=== PATIENT | male | born 1975 | race Two or more races ===

== ENCOUNTER 2022-01-29 14:13 | Outpatient (REF) | payer OTHER, SELFPAY ==
[2022-01-29 15:40] LABS: Estimated Average Glucose 292 mg/dL; Hemoglobin A1c % 11.8 %
[2022-01-29 16:07] LABS: Cholesterol 463 mg/dL
[2022-01-29 16:17] LABS: Creatinine Urine 126.16 mg/dL
[2022-01-29 16:18] LABS: Alanine Aminotransferase 27 U/L (0-40); Albumin Level 4.7 g/dL (3.5-5.0); Alkaline Phosphatase 115 U/L (39-117); Anion Gap 20 (12-20); Aspartate Amino Transferase 23 U/L (5-37); Bilirubin Total 0.6 mg/dL (0.0-1.0); Blood Urea Nitrogen 14 mg/dL (9-16); Calcium 10.1 mg/dL (8.4-10.2); Carbon Dioxide 19 mmol/L (22-29); Chloride 103 mmol/L (96-108); Estimated Glomerular Filt Rate > 60; Glucose Fasting 246 mg/dL (60-99); Potassium 4.5 mmol/L (3.3-5.1); Sodium 137 mmol/L (135-145); Total Protein 8.4 g/dL (6.5-8.0)
[2022-01-29 16:20] LABS: HDL Cholesterol 14 mg/dL; Triglycerides 3909 mg/dL
[2022-01-29 16:30] LABS: Microalbum/Creatinine Ratio Ur 393.1 ug/mg cr
[2022-01-29 16:47] LABS: Basophils Percent Auto 0.1 % (0-2); Eosinophils Absolute Auto 0.2 X10*3/uL (0.0-0.4); Eosinophils Percent Auto 1.9 % (0-4); Hematocrit 43.9 % (42.0-52.0); Imm Gran Abs Auto 0.06 X10*3/uL (0.00-0.03); Imm Gran Pct Auto 0.7 % (0.0-0.4); Lymphocytes Absolute Auto 2.6 X10*3/uL (1.2-4.9); Lymphocytes Percent Auto 31.5 % (20-40); MANUAL DIFF FLAG SCAN; Mean Corpuscular Volume 86.6 fL (80.0-98.0); Mean Platelet Volume 10.7 fL (9.4-12.4); Monocytes Absolute Auto 0.6 X10*3/uL (0.1-1.2); Neutrophils Absolute Auto 4.9 x10*3/uL (2.0-8.3); Neutrophils Percent Auto 58.8 % (45-73); Platelet Count 452 X10*3/uL (160-400); Red Blood Count 5.07 X10*6/uL (4.60-5.80); Red Cell Distribution Width 13.5 % (11.0-16.0); SCAN SMEAR FLAG 1; White Blood Count 8.3 X10*3/uL (4.8-10.8)
[2022-01-29 18:24] LABS: Hemoglobin 14.7 g/dl (14.0-18.0); Mean Corpuscular HGB Conc 33.4 g/dl (31.0-36.0); Mean Corpuscular Hemoglobin 28.9 pg (27.0-33.0)
[2022-01-29 19:13] LABS: SLIDE REVIEW VERIFIED
== END 2022-01-29 14:14 | disposition home or self-care (01) ==
LOC: HO.LAB 14:13
PROVIDERS: PCP Internal Medicine; Visit Provider Internal Medicine
DX: Z00.00 Encounter for general adult medical examination without abnormal findings (principal); Z13.0 Encounter for screening for diseases of the blood and blood-forming organs and certain disorders involving the immune mechanism; E11.69 Type 2 diabetes mellitus with other specified complication; E66.01 Morbid (severe) obesity due to excess calories
CPT/HCPCS: 36415; 80053; 80061; 82043; 83036; 85025

== ENCOUNTER 2022-03-08 10:57 | Outpatient (REF) | payer OTHER, SELFPAY ==
[2022-03-08 12:08] LABS: Glucose Fasting 127 mg/dL (60-99)
[2022-03-08 12:12] LABS: Estimated Average Glucose 229 mg/dL; Hemoglobin A1c % 9.6 %
[2022-03-08 12:37] LABS: Creatinine Urine 138.53 mg/dL; Microalbum/Creatinine Ratio Ur 88.7 ug/mg cr
== END 2022-03-08 10:58 | disposition home or self-care (01) ==
LOC: HO.LAB 10:57
PROVIDERS: PCP Internal Medicine; Visit Provider Internal Medicine
DX: E11.69 Type 2 diabetes mellitus with other specified complication (principal); E66.01 Morbid (severe) obesity due to excess calories; E11.65 Type 2 diabetes mellitus with hyperglycemia
CPT/HCPCS: 36415; 82043; 82947; 83036

== ENCOUNTER → 2022-11-08 09:43 | Outpatient (BNVA) | payer OTHER, SELFPAY | PROVIDERS: PCP Internal Medicine; Referring Provider Internal Medicine; Visit Provider Surgery | DX: K62.9 Disease of anus and rectum, unspecified (principal) | CPT/HCPCS: 99202 ==

== ENCOUNTER 2022-11-22 10:33 | Outpatient (REF) | payer OTHER, SELFPAY ==
[2022-11-22 10:45] VITALS: BP 163/90; PULSE 82; RESP 16; TEMP 36.7; O2SAT 98
[2022-11-22 10:47] VITALS: BMI 39.0
--- NOTE | 2022-11-22 11:51 | W.PM.OPN ---
Operative Note Operative Note Date of Service: 11/22/22 Narrative: Preop diagnosis: Perianal skin lesion Postop diagnosis: Perianal skin lesion Procedure: Excision of perianal lesion under local anesthesia Surgeon: Shmuel Sotomayor MD The patient is a 47-year-old male with note of a polypoid fleshy perianal lesion just at the anal verge. He wanted to proceed with excision. He understood the technique of excision under local anesthesia. He was aware of the risks, benefits, and alternatives. He was brought to the minor procedure room. he was placed in prone position. The buttocks were retracted with wide tape laterally. The perianal area is prepped draped usual sterile fashion. Lesion was seen as described above. This was about 1 cm in diameter. This had a narrow base. I infiltrated the area with lidocaine 1%. I excised the lesion using a blade 15. This was sent as a specimen. I closed the incision and thickness chromic 3-0 sutures. Good hemostasis was noted. He tolerated procedure well. There were no immediate complications. Estimated blood loss about 5 cc He was given wound care instructions and will be seen in the office for postop check.
[2022-11-22 12:19] VITALS: BP 143/89; PULSE 88; RESP 16; O2SAT 97
== END 2022-11-22 10:34 | disposition home or self-care (01) ==
LOC: HO.MS 10:33
PROVIDERS: PCP Internal Medicine; Visit Provider Surgery
PROC: (CPT 46220; principal; 2022-11-22 11:30)
DX: A63.0 Anogenital (venereal) warts (principal)
CPT/HCPCS: 46220; 88304; 88305

== ENCOUNTER → 2022-12-10 11:07 | Outpatient (BNVA) | payer OTHER, SELFPAY | PROVIDERS: PCP Internal Medicine; Visit Provider Surgery | DX: Z13.89 Encounter for screening for other disorder (principal) ==

== ENCOUNTER 2022-12-17 09:23 | Outpatient (REF) | payer OTHER, SELFPAY ==
[2022-12-17 09:35] LABS: MANUAL DIFF FLAG NO
[2022-12-17 09:43] LABS: Basophils Percent Auto 0.3 % (0-2); Eosinophils Absolute Auto 0.2 X10*3/uL (0.0-0.4); Eosinophils Percent Auto 1.6 % (0-4); Hematocrit 45.1 % (42.0-52.0); Hemoglobin 14.9 g/dl (14.0-18.0); Imm Gran Abs Auto 0.13 X10*3/uL (0.00-0.03); Imm Gran Pct Auto 1.4 % (0.0-0.4); Lymphocytes Absolute Auto 2.6 X10*3/uL (1.2-4.9); Lymphocytes Percent Auto 27.2 % (20-40); Mean Corpuscular Hemoglobin 28.9 pg (27.0-33.0); Mean Corpuscular Volume 87.4 fL (80.0-98.0); Mean Platelet Volume 9.1 fL (9.4-12.4); Monocytes Absolute Auto 0.7 X10*3/uL (0.1-1.2); Monocytes Percent Auto 7.7 % (2-11); Neutrophils Percent Auto 61.8 % (45-73); Platelet Count 383 X10*3/uL (160-400); Red Blood Count 5.16 X10*6/uL (4.60-5.80); Red Cell Distribution Width 12.4 % (11.0-16.0); White Blood Count 9.6 X10*3/uL (4.8-10.8)
[2022-12-17 10:38] LABS: Alanine Aminotransferase 39 U/L (0-40); Albumin Level 4.6 g/dL (3.5-5.0); Alkaline Phosphatase 104 U/L (39-117); Anion Gap 15 (12-20); Aspartate Amino Transferase 25 U/L (5-37); Bilirubin Total 0.6 mg/dL (0.0-1.0); Blood Urea Nitrogen 17 mg/dL (9-16); Calcium 9.6 mg/dL (8.4-10.2); Carbon Dioxide 25 mmol/L (22-29); Chloride 105 mmol/L (96-108); Cholesterol 183 mg/dL; Estimated Glomerular Filt Rate > 60; Glucose Fasting 230 mg/dL (60-99); HDL Cholesterol 25 mg/dL; Potassium 4.9 mmol/L (3.3-5.1); Sodium 140 mmol/L (135-145); Triglycerides 507 mg/dL
[2022-12-17 10:56] LABS: Thyroid Stimulating Hormone 1.52 uIU/mL (0.32-4.0)
[2022-12-17 11:18] LABS: Microalbum/Creatinine Ratio Ur 127.9 ug/mg cr
== END 2022-12-17 09:24 | disposition home or self-care (01) ==
LOC: HO.LAB 09:23
PROVIDERS: PCP Internal Medicine; Visit Provider Internal Medicine
DX: E03.9 Hypothyroidism, unspecified (principal); E11.69 Type 2 diabetes mellitus with other specified complication; E66.01 Morbid (severe) obesity due to excess calories; E78.5 Hyperlipidemia, unspecified; I10 Essential (primary) hypertension; Z13.0 Encounter for screening for diseases of the blood and blood-forming organs and certain disorders involving the immune mechanism
CPT/HCPCS: 36415; 80053; 80061; 82043; 84443; 85025

== ENCOUNTER 2023-06-19 10:23 | Outpatient (AMB) | payer OTHER, SELFPAY ==
[2023-06-19 10:27] VITALS: BP 132/84; PULSE 76; O2SAT 98; BMI 36.8
--- NOTE | 2023-06-19 10:27 | MHC.PC.OV ---
Vital Signs 06/19/23 10:27 Height 5 ft 6 in Weight 228 lb BMI 36.8 BP 132/84 Blood Pressure Location Lt brachial Position Sitting Pulse 76 Pulse Source Pulse Oximeter Pulse Oximetry (%) 98 Oxygen Delivery Method Room Air Intake Visit Reasons: 3mth f/u Tomography Technologist: Not Required per policy Accompanied by: Self / Same As Patient Allergies No Known Allergies Allergy (Verified 06/19/23 10:27) Medication List - Last Reconciled 06/19/23 by Bob Bernard MD clonazepam 2 mg PO BEDTIME PRN hydroxyzine pamoate 25 mg PO BEDTIME PRN lisinopril 10 mg PO DAILY metformin 500 mg PO BID zolpidem 10 mg PO BEDTIME Tobacco use date assessed: 03/19/23 Dental Screening Dental Screen Date: 06/19/23 Did you have a dental visit in the last 12 months?: No Did you have a dental problem in the last 6 months where you did not have access to dental care?: No Was dental information given to patient?: Patient has dentist HPI 3mth f/u HPI Details HTN on Rx; doing well PFSH Medical History Bipolar disorder Obesity Perianal lesion Surgical History H/O local excision of skin lesion (11/22/22) No pertinent past surgical history Social History Housing: Apartment Patient Tobacco Use Status: Former Tobacco user Tobacco use type: Cigarette e-Cigarette/Vaping Use: Never Used Second Hand Smoke Exposure: No service: No Current occupational status: disabled Cognitive needs: Yes Hearing needs: Yes (deaf) Vision needs: Yes Questionnaire PHQ-9 Over the last 2 weeks, how often have you been bothered by any of the following problems? 1. Little interest or pleasure in doing things: not at all 2. Feeling down, depressed, or hopeless: more than half the days 3. Trouble falling or staying asleep, or sleeping too much: more than half the days 4. Feeling tired or having little energy: not at all 5. Poor appetite or overeating: not at all 6. Feeling bad about yourself - or that you are a failure or have let yourself or your family down: not at all 7. Trouble concentrating on things, such as reading the newspaper or watching television: not at all 8. Moving or speaking so slowly that other people could have noticed. Or the opposite - being so fidgety or restless that you have been moving around a lot more than usual: not at all 9. Thoughts that you would be better off or of hurting yourself in some way: not at all Total score: 4 Depression Screening Interpretation: Negative 53925 - PHQ-9 Billing: Yes Source: Developed by Drs. Thomas Phillips, Emy Hemphill, Hank Marroquin and colleagues, with an educational beba from [employer]. Thrive Questionnaire Date Thrive assessed: 03/19/23 Currently or been in a relationship where the following occur: no concerns reported AUDIT C Alcohol Use Questionnaire (AUDIT-C) 1. How often do you have a drink containing alcohol?: Never Total Score: 0 Score Reviewed/Action Taken: Yes MARU-7 AMB Questionnaire MARU-7 Date MARU - 7 assessed: 03/19/23 Source: Developed by Drs. Thomas Phillips, Emy Hemphill, Hank Marroquin and colleagues, with an educational beba from [employer]. Review of Systems Const Denies chills, Denies headache(s) and Denies weight loss ENT Denies headache(s) Card Denies chest pain, Denies syncope, Denies irregular heart rhythm and Denies dyspnea Resp Denies chest congestion, Denies cough and Denies dyspnea GI Denies abdominal pain, Denies change in stool character, Denies nausea and Denies vomiting Musc Denies deformity and Denies joint swelling Neuro Denies syncope and Denies headache(s) Physical exam (Primary Care) Vital Signs: Last Vital Signs Pulse 76 06/19/23 10:27 BP 132/84 06/19/23 10:27 Pulse Ox 98 06/19/23 10:27 Oxygen Delivery Method Room Air 06/19/23 10:27 BMI result Body Mass Index 36.8 Tobacco/Smoking Status: Tobacco use Status Tobacco use date assessed 03/19/23 06/19/23 10:28 Patient Tobacco Use Status Former Tobacco user 06/19/23 10:28 Tobacco use type Cigarette 06/19/23 10:28 e-Cigarette/Vaping Use Never Used 06/19/23 10:28 PHQ-9: PHQ-9 Score PHQ-9: Total score 4 06/19/23 10:43 Depression Screening Interpretation: Negative Thrive Assessment: Date of Thrive Assessment Date Thrive assessed 03/19/23 06/19/23 10:28 Currently or been in a relationship where the following occur: no concerns reported Const General: cooperative, healthy appearing and no acute distress Resp Effort & Inspection: normal respiratory effort Auscultation: clear to auscultation bilaterally Percussion: percussion normal Cardio Jugular venous distension: no JVD Rate: regular rate Rhythm: regular rhythm GI Inspection: Yes normal to inspection Results AMB Hemoglobin A1c AMB Hemoglobin A1c 7.5 % Last Edit by MARIELY Ying on 06/19/23 10:43 Results Reviewed Results Reviewed: Laboratory Last Values Hgb A1c (Clinic) 7.5 % (4.0-6.0) H 06/19/23 10:28 Assessment and Plan Assessment & Plan (1) Hypertension: Code(s): I10 - Essential (primary) hypertension Plan: stable; same rx Orders: Orders AMB Hemoglobin A1c Today E11.69 - Type 2 diabetes mellitus with other specified complication, E66.01 - Morbid (severe) obesity due to excess calories Medications: Refilled lisinopril 10 mg PO DAILY 60 tabs 6RF Coding Level of Care Code Est Pt Level 3 (99214) Diagnoses Hypertension I10
== END 2023-06-19 10:39 | disposition home or self-care (01) ==
PROVIDERS: PCP Internal Medicine; Visit Provider Internal Medicine
DX: E11.69 Type 2 diabetes mellitus with other specified complication (principal); E66.01 Morbid (severe) obesity due to excess calories; I10 Essential (primary) hypertension; Z68.36 Body mass index [BMI] 36.0-36.9, adult
CPT/HCPCS: 83036; 99213

== ENCOUNTER 2023-07-15 09:58 | Outpatient (AMB) | payer OTHER, SELFPAY ==
[2023-07-15 09:59] VITALS: BP 126/70; PULSE 81; O2SAT 100; BMI 36.6
--- NOTE | 2023-07-15 09:59 | MHC.PC.OV ---
Vital Signs 07/15/23 09:59 Height 5 ft 6 in Weight 227 lb BMI 36.6 BP 126/70 Blood Pressure Location Lt brachial Position Sitting Pulse 81 Pulse Source Pulse Oximeter Pulse Oximetry (%) 100 Oxygen Delivery Method Room Air Intake Visit Reasons: Annual Exam Swaging Machine Operator Required: No Medical Assistant Dermatology: Not Required per policy Accompanied by: Self / Same As Patient Allergies No Known Allergies Allergy (Verified 07/15/23 10:00) Medication List - Last Reconciled 07/15/23 by Bob Bernard MD clonazepam 2 mg PO BEDTIME PRN hydroxyzine pamoate 25 mg PO BEDTIME PRN lisinopril 10 mg PO DAILY metformin 500 mg PO BID zolpidem 10 mg PO BEDTIME Tobacco use date assessed: 03/19/23 Dental Screening Dental Screen Date: 07/15/23 Did you have a dental visit in the last 12 months?: No Did you have a dental problem in the last 6 months where you did not have access to dental care?: No Was dental information given to patient?: Patient has dentist HPI Annual Exam HPI Details HTN and DM; labs [facility] Medical History Perianal lesion Bipolar disorder Obesity Surgical History H/O local excision of skin lesion (11/22/22) No pertinent past surgical history Social History Housing: Apartment Patient Tobacco Use Status: Former Tobacco user Tobacco use type: Cigarette e-Cigarette/Vaping Use: Never Used Second Hand Smoke Exposure: No service: No Current occupational status: disabled Cognitive needs: Yes Hearing needs: Yes (deaf) Vision needs: Yes Questionnaire PHQ-9 Over the last 2 weeks, how often have you been bothered by any of the following problems? 1. Little interest or pleasure in doing things: not at all 2. Feeling down, depressed, or hopeless: more than half the days 3. Trouble falling or staying asleep, or sleeping too much: more than half the days 4. Feeling tired or having little energy: not at all 5. Poor appetite or overeating: not at all 6. Feeling bad about yourself - or that you are a failure or have let yourself or your family down: not at all 7. Trouble concentrating on things, such as reading the newspaper or watching television: not at all 8. Moving or speaking so slowly that other people could have noticed. Or the opposite - being so fidgety or restless that you have been moving around a lot more than usual: not at all 9. Thoughts that you would be better off or of hurting yourself in some way: not at all Total score: 4 Depression Screening Interpretation: Negative 96257 - PHQ-9 Billing: Yes Source: Developed by Drs. Thomas Phillips, Emy Hemphill, Hank Marroquin and colleagues, with an educational beba from [employer]. Thrive Questionnaire Date Thrive assessed: 03/19/23 AUDIT C Alcohol Use Questionnaire (AUDIT-C) 1. How often do you have a drink containing alcohol?: Never Total Score: 0 Score Reviewed/Action Taken: Yes MARU-7 AMB Questionnaire MARU-7 Date MARU - 7 assessed: 03/19/23 Source: Developed by Drs. Thomas Phillips, Emy Hemphill, Hank Marroquin and colleagues, with an educational beba from [employer]. Review of Systems Const Denies chills, Denies fatigue, Denies headache(s) and Denies weight loss Eyes Denies change in vision, Denies diplopia and Denies eye pain ENT Denies vertigo, Denies dizziness, Denies headache(s) and Denies nasal discharge Card Denies chest pain, Denies rapid heart rate and Denies dyspnea on exertion Resp Denies chest congestion, Denies cough, Denies pain with cough and Denies dyspnea on exertion GI Denies abdominal pain, Denies hematochezia and Denies change in bowel habits Musc Denies myalgias, Denies arthralgias and Denies joint swelling Skin/Breast Denies lesions and Denies unusual bruising Neuro Denies vertigo, Denies dizziness, Denies headache(s) and Denies focal weakness Endo Denies fatigue Physical exam (Primary Care) Vital Signs: Last Vital Signs Pulse 81 07/15/23 09:59 BP 126/70 07/15/23 09:59 Pulse Ox 100 07/15/23 09:59 Oxygen Delivery Method Room Air 07/15/23 09:59 BMI result Body Mass Index 36.6 Tobacco/Smoking Status: Tobacco use Status Tobacco use date assessed 03/19/23 07/15/23 10:01 Patient Tobacco Use Status Former Tobacco user 07/15/23 10:01 Tobacco use type Cigarette 07/15/23 10:01 e-Cigarette/Vaping Use Never Used 07/15/23 10:01 PHQ-9: PHQ-9 Score PHQ-9: Total score 4 07/15/23 10:13 Depression Screening Interpretation: Negative Thrive Assessment: Date of Thrive Assessment Date Thrive assessed 03/19/23 07/15/23 10:01 Const General: cooperative, healthy appearing and no acute distress Orientation/consciousness: oriented to person, oriented to place and oriented to time HENMT Head: Yes normal to inspection, Yes normocephalic and Yes atraumatic Mouth: Normal oral and palatal mucosa present and tongue normal Throat: Yes posterior oropharynx normal and Yes uvula midline Eyes General: appearance normal, both eyes and all related structures Neck Neck: Yes normal visual inspection, Yes full ROM and Yes no lymphadenopathy Thyroid: Thyroid normal Carotids: normal carotid upstroke Chest Chest palpation & inspection: normal inspection of the chest Resp Effort & Inspection: normal respiratory effort and able to speak in complete sentences Auscultation: clear to auscultation bilaterally Cardio Jugular venous distension: no JVD Palpation: normal PMI Rate: regular rate Rhythm: regular rhythm Heart sounds: S1 normal heart sound present and S2 normal heart sound present GI Inspection: Yes normal to inspection Palpation (GI): Soft to palpation and No hepatosplenomegaly present Auscultation: normal bowel sounds General: Yes no CVA tenderness Back/Spine/Pelvis Back: no CVA tenderness Skin General skin exam: no rashes or lesions noted Neuro General: oriented to person, oriented to place and oriented to time Extrem General: Yes normal to inspection and Yes full ROM Office Procedures Flu Questionnaire Does the patient have a severe egg allergy?: No Does the patient have severe life threatening allergies?: No Does the patient have a fever or illness today?: No Has the patient ever had Guillain-Dumas Syndrome?: No Has the patient ever had any past reaction to a flu shot?: No Immunizations flu vacc [id number] 6mos up(PF) 60 mcg(15 mcgx4)/0.5 mL IM syringe Performing Provider: Bob Bernard MD [facility] Documented (not given) by: MARIELY Ying on 07/15/23 10:13 Reason Not Given: Patient Refused Assessment and Plan Assessment & Plan (1) Physical exam: Code(s): Z00.00 - Encounter for general adult medical examination without abnormal findings Plan: stable (2) Type 2 diabetes mellitus with morbid obesity: Code(s): E11.69 - Type 2 diabetes mellitus with other specified complication; E66.01 - Morbid (severe) obesity due to excess calories Plan: do labs; same rx (3) Hypertension: Code(s): I10 - Essential (primary) hypertension Plan: stable Orders: Orders Influenza [id number] Immunization Today Z23 - Encounter for immunization Comprehensive [place]. Panel Fast Today N28.9 - Disorder of kidney and ureter, unspecified Hemoglobin A1c Today R73.9 - Hyperglycemia, unspecified Lipid Panel Today E78.5 - Hyperlipidemia, unspecified Complete Blood Count Auto Diff Today D64.9 - Anemia, unspecified Thyroid Stimulating Hormone Today E03.9 - Hypothyroidism, unspecified Referrals Gastroenterology Referral Z12.11 - Encounter for screening for malignant neoplasm of colon Coding Level of Care Code Est Pt Prev Care 40-64y(62525) Diagnoses Physical exam Z00.00 Type 2 diabetes mellitus with morbid obesity E11.69; E66.01 Hypertension I10
== END 2023-07-15 10:14 | disposition home or self-care (01) ==
PROVIDERS: Visit Provider Internal Medicine
DX: Z00.00 Encounter for general adult medical examination without abnormal findings (principal); E11.69 Type 2 diabetes mellitus with other specified complication; I10 Essential (primary) hypertension
CPT/HCPCS: 99396

== ENCOUNTER 2024-04-27 22:03 | Emergency (ER) | payer OTHER, SELFPAY ==
[2024-04-27 22:07] VITALS: BP 138/80; PULSE 85; RESP 18; TEMP 36.1; O2SAT 95; BMI 36.2
[2024-04-28] VITALS: BP 120/83; PULSE 77; RESP 16; TEMP 37.2; O2SAT 97
--- NOTE | 2024-04-28 02:01 | ED_ITS ---
HPI - General Adult General Chief complaint: General Medical Stated complaint: diabetic, toe nails turning black Time Seen by Provider: 04/28/24 01:36 Source: patient Mode of arrival: ambulatory Limitations: no limitations History of Present Illness ED Provider: marylin LOUIS narrative: Patient diabetic apparently accidentally hit his toes to the cabinet 2 days ago noticed discoloration under the nail bilaterally no open wound patient is worried about the infection Related Data Home Medications ?Medication ?Instructions ?Recorded ?Confirmed hydroxyzine pamoate 25 mg capsule 25 mg PO BEDTIME PRN 07/10/21 07/15/23 zolpidem 10 mg tablet 10 mg PO BEDTIME 07/10/21 07/15/23 clonazepam 1 mg tablet 2 mg PO BEDTIME PRN 01/29/22 07/15/23 Previous Rx's ?Medication ?Instructions ?Recorded metformin 500 mg tablet 500 mg PO BID #180 tabs 04/02/23 lisinopril 10 mg tablet 10 mg PO DAILY #60 tabs 06/19/23 Allergies Allergy/AdvReac Type Severity Reaction Status Date / Time No Known Allergies Allergy Verified 04/27/24 22:13 Review of Systems 2 Review of Systems: Yes all other systems are reviewed and are negative PMFSH Past Medical History Medical History Perianal lesion Bipolar disorder Obesity Surgical History H/O local excision of skin lesion (11/22/22) No pertinent past surgical history Social History Social History Housing: Apartment Patient Tobacco Use Status: Former Tobacco user Tobacco use type: Cigarette e-Cigarette/Vaping Use: Never Used Second Hand Smoke Exposure: No Advance Directives: No Advance Directives Information Provided: Yes Do you have a plan to hurt others: No Plan service: No Current occupational status: disabled Cognitive needs: Yes Hearing needs: Yes (deaf) Vision needs: Yes Physical Exam ED Vital Signs: Vital Signs - 24 hr 04/27/24 22:07 04/28/24 00:00 Temperature 97 F 98.9 F Pulse Rate 85 77 Respiratory Rate 18 16 Blood Pressure 138/80 120/83 Pulse Oximetry 95 97 Oxygen Delivery Method Room Air Room Air BMI result Body Mass Index 36.2 Extrem Ankle/foot/toe images: 2 1. Small subungual hematoma involving about 1/4 of the toe nail no signs of infection 2. Small subungual hematoma involving about 1/ 6 of the toe nail no signs of infection Discharge Plan Discharge Clinical Impression: Hematoma, subungual, toe Patient Disposition: Home, Self-Care Instructions: Subungual Hematoma (ED) Additional Instructions: Care as advised there is no signs of infection Prescriptions: No Action metformin 500 mg tablet 500 mg PO BID Qty: 180 8RF zolpidem 10 mg tablet 10 mg PO BEDTIME hydroxyzine pamoate 25 mg capsule 25 mg PO BEDTIME PRN clonazepam 1 mg tablet 2 mg PO BEDTIME PRN lisinopril 10 mg tablet 10 mg PO DAILY Qty: 60 6RF Print Language: [place]
[2024-04-28 02:10] VITALS: BP 120/83; PULSE 77; RESP 16; TEMP 37.2; O2SAT 97
--- NOTE | 2024-04-28 02:10 | PC.NURSE ---
pt seen by in emc room 1, did not wait for d/c paperwork prior to leaving.
== END 2024-04-28 02:10 | disposition home or self-care (01) ==
PROVIDERS: Emergency Provider Internal Medicine; PCP Internal Medicine
DX: S90.221A Contusion of right lesser toe(s) with damage to nail, initial encounter (principal); S90.222A Contusion of left lesser toe(s) with damage to nail, initial encounter; Y29.XXXA Contact with blunt object, undetermined intent, initial encounter; Y93.01 Activity, walking, marching and hiking; Y92.009 Unspecified place in unspecified non-institutional (private) residence as the place of occurrence of the external cause; Y99.8 Other external cause status
CPT/HCPCS: 99282; 99283

== ENCOUNTER 2024-06-19 07:28 | Day surgery (SDC) | payer OTHER, SELFPAY ==
[2024-06-18 07:04] VITALS: BMI 35.4
--- NOTE | 2024-06-18 09:45 | HO.ANESPROP2 ---
Documented by User: Barbi Ellington NP 06/18/24 09:45 HPI - Anesthesia Eval Consult details Narrative: 49yo M for Colonoscopy PMFSH Active Problems Active Problems: All Active Problems Hypertension (Acute) Type 2 diabetes mellitus with morbid obesity (Acute) Hyperglycemia (Acute) Physical exam (Acute) Perianal lesion (Acute) Bipolar disorder (Acute) Obesity (Acute) Past Medical History Medical History Anxiety HTN (hypertension) Diabetes Perianal lesion Bipolar disorder Obesity Surgical History Surgical History H/O local excision of skin lesion (11/22/22) No pertinent past surgical history Social History Social History Housing: Apartment Patient Tobacco Use Status: Former Tobacco user Tobacco use type: Cigarette e-Cigarette/Vaping Use: Never Used Second Hand Smoke Exposure: No Have you been hit, kicked, punched, or otherwise hurt by someone within the past year? If so, by whom?: No Advance Directives: No Advance Directives Information Provided: Yes Nutrition Risks: No Nutritional Risk service: No Current occupational status: disabled Cognitive needs: Yes Hearing needs: Yes (deaf) Vision needs: Yes Meds Allergies Allergy/AdvReac Type Severity Reaction Status Date / Time No Known Allergies Allergy Verified 04/27/24 22:13 Home Medications ?Medication ?Instructions ?Recorded ?Confirmed ?Last Taken ?Type hydroxyzine pamoate 25 mg capsule 25 mg PO BEDTIME PRN Insomnia 07/10/21 06/18/24 Unknown History zolpidem 10 mg tablet 10 mg PO BEDTIME 07/10/21 06/18/24 Unknown History clonazepam 1 mg tablet 2 mg PO BEDTIME PRN Insomnia 01/29/22 06/18/24 Unknown History Exam Height,Weight and Vital Signs: Height 5 ft 7 in Weight 102.512 kg Assessment and Plan Assessment Anesthesia Assessment: Chart Reviewed Documented by User: Mary Longoria MD 06/19/24 08:31 [facility] Past Medical History Medical History Anxiety HTN (hypertension) Diabetes Perianal lesion Bipolar disorder Obesity Surgical History Surgical History H/O local excision of skin lesion (11/22/22) No pertinent past surgical history History of Problems with Anesthesia: No Social History Social History Housing: Apartment Patient Tobacco Use Status: Former Tobacco user Tobacco use type: Cigarette e-Cigarette/Vaping Use: Never Used Second Hand Smoke Exposure: No Have you been hit, kicked, punched, or otherwise hurt by someone within the past year? If so, by whom?: No Advance Directives: No Advance Directives Information Provided: Yes Nutrition Risks: No Nutritional Risk service: No Current occupational status: disabled Cognitive needs: Yes Hearing needs: Yes (deaf) Vision needs: Yes Meds Allergies Allergy/AdvReac Type Severity Reaction Status Date / Time No Known Allergies Allergy Verified 04/27/24 22:13 Home Medications ?Medication ?Instructions ?Recorded ?Confirmed ?Last Taken ?Type hydroxyzine pamoate 25 mg capsule 25 mg PO BEDTIME PRN Insomnia 07/10/21 06/18/24 Unknown History zolpidem 10 mg tablet 10 mg PO BEDTIME 07/10/21 06/18/24 Unknown History clonazepam 1 mg tablet 2 mg PO BEDTIME PRN Insomnia 01/29/22 06/18/24 Unknown History Exam Airway Mallampati Class: III TM Dist: >3cm Neck ROM: Full Loose/Missing/Broken Teeth: No Heart: RRR Lungs: CTA Assessment and Plan Assessment Anesthesia Assessment: Anesthesia Plan Discussed Final Anesthetic Review History of Problems with Anesthesia: No NPO: Yes ASA Class: II Final Preanesthetic Review: Meds/Allgs Chart Reviewed, Consent Obtained/Reviewed and Anes Risks/Benef Reviewed Patient Risk: Low Procedure Risk: Low Anesthetic Plan Anesthetic Plan: MAC: Disposition: Standard PACU
[2024-06-19 07:43] VITALS: BP 121/70; PULSE 79; RESP 18; TEMP 36; O2SAT 98; BMI 35.8
[2024-06-19 08:01] LABS: Glucose, Whole Blood 136 mg/dL (60-115)
[2024-06-19] MEDS: Lactated Ringers 1,000 ML 100 ML IVCONT (08:17)
[2024-06-19 09:30] VITALS: BP 91/48; PULSE 71; RESP 16; TEMP 36.4; O2SAT 98
--- NOTE | 2024-06-19 09:32 | PM.OP ---
Brief Operative Note Date of Service: 06/19/24 Pre-op diagnosis: Heme + stool Post-op diagnosis: other (Polyps) Procedure: Colonoscopy to the cecum and TI with hot snare polypectomy x 2, placement of 2 Ultra Resolution clips at 50cm and 1 Resolution clip at 12cm, and placement of submucosal ink at 50cm and 12cm Surgeon: Thomas Peraza MD Anesthesia: MAC Was an Apartment Maintenance Manager used for this Procedure?: No Estimated blood loss (mL): 0 Pathology: other (A. Polyp at 50cm B. Polyp at 12cm) Condition: stable Disposition: PACU
[2024-06-19 09:45] VITALS: BP 97/61; PULSE 73; RESP 18; TEMP 36.6; O2SAT 98
--- NOTE | 2024-06-19 09:50 | OP_ITS ---
DATE OF SERVICE: 06/19/2024 SURGEON: Thomas Peraza MD INDICATIONS: The patient presents for evaluation of heme-positive stool and colorectal cancer screening. Full consent was obtained from him for this, including risks of bleeding and perforation. PREOPERATIVE DIAGNOSIS: POSTOPERATIVE DIAGNOSIS: PROCEDURE PERFORMED: Colonoscopy to cecum and terminal ileum with hot snare polypectomy x 2, and placement of a total of 3 Resolution clips and marking with submucosal ink x 2. ESTIMATED BLOOD LOSS: COMPLICATIONS: ANESTHESIA: Medication used, monitored anesthesia care. ASSISTANTS: SPECIMENS: PREOPERATIVE DIAGNOSES: Heme-positive stool, colorectal cancer screening. POSTOPERATIVE DIAGNOSES: Heme-positive stool, colorectal cancer screening, colon polyp, diverticulosis, and internal hemorrhoids. DESCRIPTION OF PROCEDURE: The patient was placed in the left lateral decubitus position. A digital rectal exam revealed no abnormalities. The [employer] video pediatric colonoscope was entered into the rectum and advanced easily to the cecum. Once in the cecum, I did identify normal-appearing cecal pouch with appendiceal orifice a normal-appearing ileocecal valve. The terminal ileum was cannulated and appeared normal. The scope was withdrawn back in the colon. The entire cecum and ileocecal valve appeared normal. The scope was slowly withdrawn assessing all mucosal surfaces carefully. Preparation was excellent. At 50 cm there was an approximately 1.5 cm friable and minimally ulcerated polyp on a long stalk. This was removed by hot snare polypectomy at the base of the stalk. The polypectomy site appeared clean, without any sign of residual polyp nor bleeding. I did place 2 Ultra Resolution clips on the polypectomy site with good deployment and good hemostasis. I also placed a submucosal ink nacho adjacent to the polypectomy site. The polyp was withdrawn from the patient on the tip of the scope. The scope was advanced back to the polypectomy site, which appeared stable without any sign of bleeding. At 12 cm there was a polyp that appeared to have 2 heads on a long stalk. Each head was approximately 8-10 mm and somewhat friable. This was also removed by hot snare polypectomy toward the base of the stalk. The polypectomy site appeared clean, without any sign of residual polyp, nor bleeding. The polyp was withdrawn from the patient on the tip of the scope. The scope was advanced back to the polypectomy site, which appeared clean without any sign of residual polyp, nor bleeding. A single Resolution clip was applied to the polypectomy site with good deployment and good hemostasis. I also placed a single submucosal ink nacho adjacent to the polypectomy site as well. In the rectum, scope was retroflexed visualizing small internal hemorrhoids, but no other pathology. The rectal mucosa appeared normal. The scope was straightened and withdrawn from the patient. He tolerated the procedure well and was returned to recovery area in stable condition. IMPRESSION: 1. Colon polyps. 2. Diverticulosis. 3. Internal hemorrhoids. PLAN: The results of the pathology will be checked. If these are just tubular adenomas without any other significant findings such as carcinoma or high-grade dysplasia, I would then recommend a followup colonoscopy within 2-3 years. He was advised not to use any aspirin and NSAIDs for at least 2 weeks. He will otherwise see me on a p.r.n. basis. MD SAAMRA Tavera/EDWAR / [id number] MTDD
== END 2024-06-19 10:30 | disposition home or self-care (01) ==
PROVIDERS: PCP Internal Medicine; Visit Provider Internal Medicine
PROC: 0DJD8ZZ Inspection of Lower Intestinal Tract, Via Natural or Artificial Opening Endoscopic (ICD-10-PCS; CPT 45378; principal; 2024-06-19 08:30)
DX: R19.5 Other fecal abnormalities (principal); C20 Malignant neoplasm of rectum; D12.5 Benign neoplasm of sigmoid colon; K57.30 Diverticulosis of large intestine without perforation or abscess without bleeding; K64.8 Other hemorrhoids; I10 Essential (primary) hypertension; E11.9 Type 2 diabetes mellitus without complications; F41.9 Anxiety disorder, unspecified; Z79.84 Long term (current) use of oral hypoglycemic drugs; Z79.899 Other long term (current) drug therapy; Z98.890 Other specified postprocedural states; Z87.891 Personal history of nicotine dependence
CPT/HCPCS: 45385; 45381; 82947; 88305; 88341; 88342; J2371; J2704

== ENCOUNTER 2024-07-21 09:51 | Outpatient (AMB) | payer OTHER, SELFPAY ==
[2024-07-21 09:56] VITALS: BP 128/74; PULSE 73; O2SAT 99; BMI 34.8
--- NOTE | 2024-07-21 09:56 | MHC.PC.OV ---
Vital Signs 07/21/24 09:56 Height 5 ft 7 in Weight 222 lb BMI 34.8 BP 128/74 Blood Pressure Location Lt brachial Position Sitting Pulse 73 Pulse Source Pulse Oximeter Pulse Oximetry (%) 99 Oxygen Delivery Method Room Air Intake Visit Reasons: PE Highway Maintenance Supervisor Required: No Accompanied by: Self / Same As Patient Allergies No Known Allergies Allergy (Verified 07/21/24 09:56) Medication List - Last Reconciled 07/22/24 by Bob Bernard MD clonazepam 2 mg PO BEDTIME PRN hydroxyzine pamoate 25 mg PO BEDTIME PRN lisinopril 10 mg PO DAILY metformin 500 mg PO BID zolpidem 10 mg PO BEDTIME Tobacco use date assessed: 07/21/24 Dental Screening Dental Screen Date: 07/21/24 Did you have a dental visit in the last 12 months?: Yes Did you have a dental problem in the last 6 months where you did not have access to dental care?: No Was dental information given to patient?: Patient has dentist HPI PE HPI Details HTN and DM; sees psych for depression PFSH Medical History Anxiety HTN (hypertension) Diabetes Perianal lesion Bipolar disorder Obesity Surgical History (Updated 06/19/24 @ 08:31 by Medina Villela RN) Hx of colonoscopy H/O local excision of skin lesion (11/22/22) No pertinent past surgical history Social History Housing: Apartment Patient Tobacco Use Status: Former Tobacco user Tobacco use type: Cigarette e-Cigarette/Vaping Use: Never Used Second Hand Smoke Exposure: No service: No Current occupational status: disabled Cognitive needs: Yes Hearing needs: Yes (deaf) Vision needs: Yes Questionnaire PHQ-9 Over the last 2 weeks, how often have you been bothered by any of the following problems? 1. Little interest or pleasure in doing things: several days 2. Feeling down, depressed, or hopeless: several days 3. Trouble falling or staying asleep, or sleeping too much: several days 4. Feeling tired or having little energy: not at all 5. Poor appetite or overeating: not at all 6. Feeling bad about yourself - or that you are a failure or have let yourself or your family down: several days 7. Trouble concentrating on things, such as reading the newspaper or watching television: not at all 8. Moving or speaking so slowly that other people could have noticed. Or the opposite - being so fidgety or restless that you have been moving around a lot more than usual: not at all 9. Thoughts that you would be better off or of hurting yourself in some way: not at all Total score: 4 Source: Developed by Drs. Thomas Phillips, Emy Hemphill, Hank Marroquin and colleagues, with an educational beba from [employer]. Thrive Questionnaire Date Thrive assessed: 03/19/23 I am a: Patient What is your living situation today?: I have a steady place to live Within the past 12 months, did the food you bought not last and you didn't have the money to get more?: Often true Within the past 12 months, did you worry whether your food would run out before you got money to buy more?: Sometimes True Do you have trouble paying for medicines?: No Do you have trouble getting transportation to medical appointments?: No Do you have trouble paying your heating and electricity bill?: No Do you have trouble taking care of your child, family member or friend?: No Do you have trouble with day-to-day activities such as bathing, preparing meals, shopping, managing finances, etc.?: No Are you currently unemployed and looking for a job?: No Are you interested in more education?: No Please select the resources that you would like help with: Food and Utilities Currently or been in a relationship where the following occur: I choose not to answer THRIVE Score: 2 AUDIT C Alcohol Use Questionnaire (AUDIT-C) 1. How often do you have a drink containing alcohol?: Never Total Score: 0 MARU-7 AMB Questionnaire AMRU-7 Date MARU - 7 assessed: 03/19/23 Feeling nervous, anxious, or on edge: 1 = Several days Not being able to stop or control worryin = Several days Worrying too much about different things: 1 = Several days Trouble relaxin = Several days Being so restless that it is hard to sit still: 1 = Several days Becoming easily annoyed or irritable: 1 = Several days Feeling afraid as if something awful might happen: 1 = Several days Total MARU-7 score (0-4 normal; 5-9 mild; 10-14 moderate; 15-21 severe): 7 Source: Developed by Drs. Thomas Phillips, Emy Hemphill, Hank Marroquin and colleagues, with an educational beba from [employer]. Review of Systems Const Denies chills, Denies fatigue, Denies headache(s) and Denies weight loss Eyes Denies change in vision, Denies diplopia and Denies eye pain ENT Denies vertigo, Denies dizziness, Denies headache(s) and Denies nasal discharge Card Denies chest pain, Denies rapid heart rate and Denies dyspnea on exertion Resp Denies chest congestion, Denies cough, Denies pain with cough and Denies dyspnea on exertion GI Denies abdominal pain, Denies hematochezia and Denies change in bowel habits Musc Denies myalgias, Denies arthralgias and Denies joint swelling Skin/Breast Denies lesions and Denies unusual bruising Neuro Denies vertigo, Denies dizziness, Denies headache(s) and Denies focal weakness Endo Denies fatigue Physical exam (Primary Care) Vital Signs: Last Vital Signs Pulse 73 07/21/24 09:56 BP 128/74 07/21/24 09:56 Pulse Ox 99 07/21/24 09:56 Oxygen Delivery Method Room Air 07/21/24 09:56 BMI result Body Mass Index 34.8 Tobacco/Smoking Status: Tobacco use Status Tobacco use date assessed 07/21/24 07/21/24 10:02 Patient Tobacco Use Status Former Tobacco user 07/21/24 09:56 Tobacco use type Cigarette 07/21/24 09:56 e-Cigarette/Vaping Use Never Used 07/21/24 09:56 PHQ-9: PHQ-9 Score PHQ-9: Total score 4 07/21/24 09:56 Thrive Assessment: Date of Thrive Assessment Date Thrive assessed 03/19/23 07/21/24 09:56 Currently or been in a relationship where the following occur: I choose not to answer Const General: cooperative, healthy appearing and no acute distress Orientation/consciousness: oriented to person, oriented to place and oriented to time HENMT Head: Yes normal to inspection, Yes normocephalic and Yes atraumatic Mouth: Normal oral and palatal mucosa present and tongue normal Throat: Yes posterior oropharynx normal and Yes uvula midline Eyes General: appearance normal, both eyes and all related structures Neck Neck: Yes normal visual inspection, Yes full ROM and Yes no lymphadenopathy Thyroid: Thyroid normal Carotids: normal carotid upstroke Chest Chest palpation & inspection: normal inspection of the chest Resp Effort & Inspection: normal respiratory effort and able to speak in complete sentences Auscultation: clear to auscultation bilaterally Cardio Jugular venous distension: no JVD Palpation: normal PMI Rate: regular rate Rhythm: regular rhythm Heart sounds: S1 normal heart sound present and S2 normal heart sound present GI Inspection: Yes normal to inspection Palpation (GI): Soft to palpation and No hepatosplenomegaly present Auscultation: normal bowel sounds General: Yes no CVA tenderness Back/Spine/Pelvis Back: no CVA tenderness Skin General skin exam: no rashes or lesions noted Neuro General: oriented to person, oriented to place and oriented to time Extrem General: Yes normal to inspection and Yes full ROM Coding Level of Care Code Est Pt Prev Care 40-64y(75176) Diagnoses Physical exam Z00.00 Hypertension I10 Type 2 diabetes mellitus with morbid obesity E11.69; E66.01 Assessment & Plan Assessment & Plan (1) Physical exam: Code(s): Z00.00 - Encounter for general adult medical examination without abnormal findings Category: Medical Plan: stable; do labs (2) Hypertension: Code(s): I10 - Essential (primary) hypertension Category: Medical Plan: stable; same rx (3) Type 2 diabetes mellitus with morbid obesity: Code(s): E11.69 - Type 2 diabetes mellitus with other specified complication; E66.01 - Morbid (severe) obesity due to excess calories Category: Medical Plan: stable; same rx Medications: Refilled lisinopril 10 mg PO DAILY 60 tabs 4RF metformin 500 mg PO BID 180 tabs 8RF
== END 2024-07-21 10:14 | disposition home or self-care (01) ==
PROVIDERS: PCP Internal Medicine; Visit Provider Internal Medicine
DX: Z00.00 Encounter for general adult medical examination without abnormal findings (principal); E11.69 Type 2 diabetes mellitus with other specified complication; E66.811 Obesity, class 1; Z68.34 Body mass index [BMI] 34.0-34.9, adult; I10 Essential (primary) hypertension

== ENCOUNTER → 2024-07-21 09:51 | Outpatient (BNVA) | payer OTHER, SELFPAY | PROVIDERS: PCP Internal Medicine; Visit Provider Internal Medicine | DX: Z00.01 Encounter for general adult medical examination with abnormal findings (principal); I10 Essential (primary) hypertension; E11.69 Type 2 diabetes mellitus with other specified complication; E66.01 Morbid (severe) obesity due to excess calories; Z68.34 Body mass index [BMI] 34.0-34.9, adult; Z71.3 Dietary counseling and surveillance | CPT/HCPCS: 96127; 99396 ==

== ENCOUNTER 2024-09-23 09:06 | Outpatient (REF) | payer OTHER, SELFPAY ==
--- OUTSIDE RECORDS SUMMARY | 2024-09-23 23:21 | XMS_ITS ---
Author Organization [facility] Address [address] [place] [address] Care Team Providers Care Bird Tender Name Role Phone Bob Bernard MD Primary Care Provider Unavaila Thomas Watson Unavailable [phone] REASON FOR VISIT Path discussion Encounters Encounter Location Date Provider Diagnosis [facility] [address] [place] [address] 06/30/2024 Thomas Peraza PLAN OF TREATMENT Next Appt Details Provider Name:Thomas Peraza , 03/02/2025 09:30:00 AM, [address], [address], [place], [address],
--- OUTSIDE RECORDS SUMMARY | 2024-09-23 23:22 | XMS_ITS ---
Author Organization [facility] Address [address] [place] [address] Care Team Providers Care Cable Ferryboat Operator Name Role Phone Joana CARTER, Bob Primary Care Provider Thomas Wylie [phone] REASON FOR VISIT screening,heme positive stools Encounters Encounter Location Date Provider Diagnosis [facility] [address] [place], [place] [phone] 06/19/2024 Thomas Peraza Colon polyps K63.5 ; Heme + stool R19.5 and Other hemorrhoids K64.8 ASSESSMENTS Encounter Date Diagnosis Assessment Notes Treatment Notes Treatment Clinical Notes 06/19/2024 Colon polyps (ICD-10 - K63.5) 06/19/2024 Heme + stool (ICD-10 - R19.5) 06/19/2024 Other hemorrhoids (ICD-10 - K64.8) PLAN OF TREATMENT Next Appt Details Provider Name:Thomas Peraza , 03/02/2025 09:30:00 AM, [address], [address], [place], [address],
--- OUTSIDE RECORDS SUMMARY | 2024-09-23 23:22 | XMS_ITS ---
Author Organization [facility] Address [address] [place] [address] Care Team Providers Care Plc Controls Engineer Name Role Phone Bob Bernard MD Primary Care Provider Unavaila Thomas Watson Unavailable [phone] REASON FOR VISIT question on resolution clips Encounters Encounter Location Date Provider Diagnosis [facility] [address] [place] [address] 06/19/2024 Thomas Peraza PLAN OF TREATMENT Next Appt Details Provider Name:Thomas Peraza , 03/02/2025 09:30:00 AM, [address], [address], [place], [address],
--- OUTSIDE RECORDS SUMMARY | 2024-09-23 23:22 | XMS_ITS | Patient Health Record ---
Author Organization [facility] Address [address] [place] [address] Care Team Providers Care Activities Assistant Name Role Phone Joana CARTER, Bob Primary Care Provider Thomas Wylie [phone] ALLERGIES No Known Allergies RESULTS Component Value Reference Range Notes Glucose, Whole Blood Reviewed date:06/19/2024 06:24:51 PM Interpretation: Performing Lab:[facility], [address] [place] [phone] Notes/Report: Glucose, Whole Blood 136 60-115 mg/dL METER # : [id number] Pathology Reviewed date:07/03/2024 04:54:52 PM Interpretation: Performing Lab:[facility], [address] [place] [phone] Notes/Report: REASON FOR REFERRAL No Information MEDICATIONS Medication SIG (Take, Route, Frequency, Duration) Notes Start Date End Date Status hydrOXYzine Pamoate 25 MG TAKE 1 CAPSULE BY MOUTH EVERY DAY AT BEDTIME NEEDED Oral for 90 Active Lisinopril 10 MG Oral for 90 A ctive metFORMIN HCl 500 MG Oral for 90 Active Zolpidem Tartrate 10 MG Oral for 30 Active Dulcolax (colon prep) 5 MG take at 3:00 p.m and 7:00p.m. Orally two tablets twice a day for one day for 1 day 03/09/2024 Active MiraLax (colon prep) 17 GM/SCOOP 1 238Gm bottle mixed with Gatorade or Crystal Light Orally begin at 5:00 p.m. the day before the procedure for 1 day 03/09/2024 Active clonazePAM 1 MG Oral for 30 Ac tive IMMUNIZATIONS Vaccine Route Administration Date Status Comme nts Influenza Unknown 03/04/2024 Refused SOCIAL HISTORY Tobacco Use: Social History Observation Description Date Details (start date - stop date) Never Smoker NA - NA Sex Assigned At : Social History Observation Description Sex Assigned At Unknown Tobacco Use/Smoking Question Answer Notes Patient is a nonsmoker Alcohol Screen Question Answer Notes Did you have a drink contain ing alcohol in the past year? Yes How often did you have a dri nk containing alcohol in the past year? Monthly or less (1 point) How many drinks did you have on a typical day when you were drinking in the past year? 1 or 2 drinks (0 point) How often did you have 6 or more drinks on one occasion in the past year? Never (0 point) Points 1 Interpretation Negative PROBLEMS Problem Type ICD Code Onset Dates Problem Status W/U Status Risk SNOMED Code Notes Problem Heme + stool (R19.5) Active confirmed Abnormal feces (194211919) Problem Colon cancer screening (Z12.11) Active confirmed Colon cancer screening (501634283) VITAL SIGNS Temperature 97.8 degrees Fahrenheit 03/04/2024 Blood pressure diastolic 00 mm Hg 03/04/2024 Height 5 ft 7 in in 03/04/2024 Blood pressure systolic 000 mm Hg 03/04/2024 Weight 226 lb 8 oz lbs 03/04/2024 BMI 35.47 kg/m2 03/04/2024 Encounters Encounter Location Date Provider Diagnosis [facility] Out[place] [address] [place] [phone] 06/19/2024 Thomas Peraza Colon polyps K63.5 ; Heme + stool R19.5 and Other hemorrhoids K64.8 [facility] [address] [place] [phone] 11/08/2023 Thomas Peraza [facility] [address] [place] [phone] 03/04/2024 Thomas Peraza Heme + stool R19.5 and Colon cancer screening Z12.11 [facility] [address] [place] [phone] 03/05/2024 Thomas Peraza [facility] [address] [place] [phone] 06/19/2024 Thomas Peraza [facility] [address] [place] [phone] 06/30/2024 Thomas Peraza ASSESSMENTS Encounter Date Diagnosis Assessment Notes Treatment Notes Treatment Clinical Notes 06/19/2024 Colon polyps (ICD-10 - K63.5) 06/19/2024 Heme + stool (ICD-10 - R19.5) 03/04/2024 Colon cancer screening (ICD-10 - Z12.11) 03/04/2024 Heme + stool (ICD-10 - R19.5) Do not take the Metformin the night before nor on the morning of the colonoscopy 06/19/2024 Other hemorrhoids (ICD-10 - K64.8) PLAN OF TREATMENT Future Test Test Name Order Date COLONOSCOPY 03/04/2024 Next Appt Details Provider Name:Thomas Peraza , 03/02/2025 09:30:00 AM, [address] [place] [address], [address], [place], [address], Insurance Providers Payer Name Payer Address Payer Phone Subscriber Number Group Number Insured Name Patient Relationship to Insured Coverage Start Date Coverage End Date [facility] [address] Attn Claims JOANN John [id number] COLON, MELANY Self - patient is the insured MEDICAL (GENERAL) HISTORY Medical History History ICD Code NIDDM HTN Anxiety Denies CT,CVA,Lung disease,renal disease Surgical History Surgery Date(Month/Year) Anal lesion-benign
== END 2024-09-23 09:07 | disposition home or self-care (01) ==
LOC: HO.SH 09:06
PROVIDERS: Visit Provider Internal Medicine
DX: Z01.118 Encounter for examination of ears and hearing with other abnormal findings (principal); H90.3 Sensorineural hearing loss, bilateral
CPT/HCPCS: 92557

== ENCOUNTER 2024-09-23 09:59 | Outpatient (REF) | payer OTHER, SELFPAY ==
[2024-09-23 10:16] LABS: MANUAL DIFF FLAG NO
[2024-09-23 10:57] LABS: Basophils Percent Auto 0.4 % (0-2); Eosinophils Absolute Auto 0.2 X10*3/uL (0.0-0.4); Eosinophils Percent Auto 2.3 % (0-4); Hematocrit 43.5 % (42.0-52.0); Imm Gran Abs Auto 0.12 X10*3/uL (0.00-0.03); Imm Gran Pct Auto 1.4 % (0.0-0.4); Lymphocytes Percent Auto 35.4 % (20-40); Mean Corpuscular HGB Conc 34.5 g/dl (31.0-36.0); Mean Platelet Volume 9.6 fL (9.4-12.4); Monocytes Absolute Auto 0.6 X10*3/uL (0.1-1.2); Monocytes Percent Auto 7.4 % (2-11); Neutrophils Absolute Auto 4.5 x10*3/uL (2.0-8.3); Neutrophils Percent Auto 53.1 % (45-73); Platelet Count 368 X10*3/uL (160-400); Red Blood Count 5.18 X10*6/uL (4.60-5.80); Red Cell Distribution Width 12.3 % (11.0-16.0); White Blood Count 8.4 X10*3/uL (4.8-10.8)
[2024-09-23 11:31] LABS: Alkaline Phosphatase 104 U/L (39-117); Anion Gap 14 (12-20); Aspartate Amino Transferase 30 U/L (5-37); Bilirubin Total 0.7 mg/dL (0.0-1.0); Blood Urea Nitrogen 18 mg/dL (9-16); Calcium 11.2 mg/dL (8.4-10.2); Carbon Dioxide 25 mmol/L (22-29); Chloride 103 mmol/L (96-108); Cholesterol 211 mg/dL (<200); Estimated Glomerular Filt Rate > 60; Glucose Fasting 300 mg/dL (60-99); HDL Cholesterol 21 mg/dL (>40); Potassium 4.4 mmol/L (3.3-5.1); Sodium 138 mmol/L (135-145); Triglycerides 953 mg/dL (<150)
[2024-09-23 11:52] LABS: Alanine Aminotransferase 50 U/L (0-40)
== END 2024-09-23 10:00 | disposition home or self-care (01) ==
LOC: HO.LAB 09:59
PROVIDERS: PCP Internal Medicine; Visit Provider Internal Medicine
DX: Z13.0 Encounter for screening for diseases of the blood and blood-forming organs and certain disorders involving the immune mechanism (principal); Z13.220 Encounter for screening for lipoid disorders; Z13.9 Encounter for screening, unspecified
CPT/HCPCS: 36415; 80053; 80061; 85025

== ENCOUNTER 2024-10-22 09:32 | Outpatient (AMB) | payer OTHER, SELFPAY ==
--- NOTE | 2024-10-22 09:36 | A.OFFPC_ITS ---
Vital Signs 10/22/24 09:38 Height 5 ft 7 in Weight 227 lb 8 oz BMI 35.6 BP 138/80 Blood Pressure Location Lt brachial Position Sitting Pulse 84 Pulse Source Pulse Oximeter Pulse Oximetry (%) 97 Oxygen Delivery Method Room Air Intake Visit Reasons: 3mth f/u Intake Note: Patient is here to follow up on DM, Bipolar disorder, HTN. Esthetics Instructor Required: No Circuit Board Inspector: Not Required per policy Accompanied by: Self / Same As Patient Allergies No Known Allergies Allergy (Verified 10/22/24 09:38) Medication List - Last Reconciled 10/22/24 by Bob Bernard MD clonazepam 2 mg PO BEDTIME PRN hydroxyzine pamoate 25 mg PO BEDTIME PRN lisinopril 10 mg PO DAILY metformin 500 mg PO BID zolpidem 10 mg PO BEDTIME Tobacco use date assessed: 10/22/24 Dental Screening Dental Screen Date: 10/22/24 Did you have a dental visit in the last 12 months?: No Did you have a dental problem in the last 6 months where you did not have access to dental care?: No Was dental information given to patient?: Patient has dentist HPI 3mth f/u HPI Details DM in poor control; compliant with meds; not so much with diet and exercise PFSH Medical History Anxiety HTN (hypertension) Diabetes Perianal lesion Bipolar disorder Obesity Surgical History Hx of colonoscopy H/O local excision of skin lesion (11/22/22) No pertinent past surgical history Social History Housing: Apartment Patient Tobacco Use Status: Former Tobacco user Tobacco use type: Cigarette e-Cigarette/Vaping Use: Never Used Second Hand Smoke Exposure: No service: No Current occupational status: disabled Cognitive needs: Yes Hearing needs: Yes (deaf) Vision needs: Yes Questionnaire PHQ-9 Over the last 2 weeks, how often have you been bothered by any of the following problems? 1. Little interest or pleasure in doing things: not at all 2. Feeling down, depressed, or hopeless: not at all 3. Trouble falling or staying asleep, or sleeping too much: not at all 4. Feeling tired or having little energy: not at all 5. Poor appetite or overeating: not at all 6. Feeling bad about yourself - or that you are a failure or have let yourself or your family down: not at all 7. Trouble concentrating on things, such as reading the newspaper or watching television: not at all 8. Moving or speaking so slowly that other people could have noticed. Or the opposite - being so fidgety or restless that you have been moving around a lot more than usual: not at all 9. Thoughts that you would be better off or of hurting yourself in some way: not at all Total score: 0 Depression Screening Interpretation: Negative Depression Screening Done: Yes Source: Developed by Drs. Thomas Phillips, Emy Hemphill, Hank Marroquin and colleagues, with an educational beba from [employer]. Thrive Questionnaire Date Thrive assessed: 10/22/24 AUDIT C Alcohol Use Questionnaire (AUDIT-C) 1. How often do you have a drink containing alcohol?: Never Total Score: 0 MARU-7 AMB Questionnaire MARU-7 Date MARU - 7 assessed: 10/22/24 Feeling nervous, anxious, or on edge: 0 = Not at all Not being able to stop or control worryin = Not at all Worrying too much about different things: 0 = Not at all Trouble relaxin = Not at all Being so restless that it is hard to sit still: 0 = Not at all Becoming easily annoyed or irritable: 0 = Not at all Feeling afraid as if something awful might happen: 0 = Not at all Total MARU-7 score (0-4 normal; 5-9 mild; 10-14 moderate; 15-21 severe): 0 Source: Developed by Drs. Thomas Phillips, Emy Hemphill, Hank Marroquin and colleagues, with an educational beba from [employer]. Review of Systems Const Denies chills, Denies headache(s) and Denies weight loss ENT Denies headache(s) Card Denies chest pain, Denies syncope, Denies irregular heart rhythm and Denies dyspnea Resp Denies chest congestion, Denies cough and Denies dyspnea GI Denies abdominal pain, Denies change in stool character, Denies nausea and Denies vomiting Musc Denies deformity and Denies joint swelling Neuro Denies syncope and Denies headache(s) Physical exam (Primary Care) Vital Signs: Last Vital Signs Pulse 84 10/22/24 09:38 BP 138/80 10/22/24 09:38 Pulse Ox 97 10/22/24 09:38 Oxygen Delivery Method Room Air 10/22/24 09:38 BMI result Body Mass Index 35.6 Tobacco/Smoking Status: Tobacco use Status Tobacco use date assessed 10/22/24 10/22/24 09:43 Patient Tobacco Use Status Former Tobacco user 10/22/24 09:36 Tobacco use type Cigarette 10/22/24 09:36 e-Cigarette/Vaping Use Never Used 10/22/24 09:36 PHQ-9: PHQ-9 Score PHQ-9: Total score 0 10/22/24 10:03 Depression Screening Interpretation: Negative Thrive Assessment: Date of Thrive Assessment Date Thrive assessed 10/22/24 10/22/24 09:36 Const General: cooperative, comfortable, no acute distress and alert Neck Neck: Yes no lymphadenopathy Thyroid: Thyroid normal Resp Effort & Inspection: normal respiratory effort Auscultation: clear to auscultation bilaterally Percussion: percussion normal Cardio Jugular venous distension: no JVD Palpation: normal PMI Rate: regular rate Rhythm: regular rhythm Heart sounds: S1 normal heart sound present and S2 normal heart sound present GI Inspection: Yes normal to inspection Palpation (GI): No hepatosplenomegaly present Skin General skin exam: no rashes or lesions noted Extrem General: Yes no clubbing, cyanosis or edema Results AMB Hemoglobin A1c AMB Hemoglobin A1c 10.4 % Last Edit by MARIELY Aviles on 10/22/24 10:0 3 Results Reviewed Results Reviewed: Laboratory Last Values Hgb A1c (Clinic) 10.4 % (4.0-6.0) H 10/22/24 09:37 Coding Level of Care Code Est Pt Level 3 (65452) Diagnoses Type 2 diabetes mellitus with morbid obesity E11.69; E66.01 Assessment & Plan Assessment & Plan (1) Type 2 diabetes mellitus with morbid obesity: Code(s): E11.69 - Type 2 diabetes mellitus with other specified complication; E66.01 - Morbid (severe) obesity due to excess calories Category: Medical Plan: increase metformin to 1000mg bid Orders: Orders AMB Hemoglobin A1c Today E11.69 - Type 2 diabetes mellitus with other specified complication, E66.01 - Morbid (severe) obesity due to excess calories
[2024-10-22 09:38] VITALS: BP 138/80; PULSE 84; O2SAT 97; BMI 35.6
--- OUTSIDE RECORDS SUMMARY | 2024-10-22 09:46 | XMS_ITS ---
Author Organization [facility] Address [address] [place] [address] Care Team Providers Care Patient Financial Specialist Name Role Phone Bob Bernard MD Primary Care Provider Unavaila Thomas Watson Unavailable [phone] REASON FOR VISIT Path discussion Encounters Encounter Location Date Provider Diagnosis [facility] [address] [place] [address] 06/30/2024 Thomas Peraza PLAN OF TREATMENT Next Appt Details Provider Name:Thomas Peraza , 03/02/2025 09:30:00 AM, [address], [address], [place], [address],
--- OUTSIDE RECORDS SUMMARY | 2024-10-22 09:46 | XMS_ITS ---
Author Organization [facility] Address [address] [place] [address] Care Team Providers Care Switchman Supervisor Name Role Phone Bob Bernard MD Primary Care Provider Unavaila Thomas Watson Unavailable [phone] REASON FOR VISIT question on resolution clips Encounters Encounter Location Date Provider Diagnosis [facility] [address] [place] [address] 06/19/2024 Thomas Peraza PLAN OF TREATMENT Next Appt Details Provider Name:Thomas Peraza , 03/02/2025 09:30:00 AM, [address], [address], [place], [address],
--- OUTSIDE RECORDS SUMMARY | 2024-10-22 09:46 | XMS_ITS ---
Author Organization [facility] Address [address] [place] [address] Care Team Providers Care Crop Duster Helper Name Role Phone Joana CARTER, Bob Primary Care Provider Thomas Wylie [phone] REASON FOR VISIT screening,heme positive stools Encounters Encounter Location Date Provider Diagnosis [facility] Outpatient [address], [place] [phone] 06/19/2024 Thomas Peraza Colon polyps K63.5 ; Heme + stool R19.5 and Other hemorrhoids K64.8 ASSESSMENTS Encounter Date Diagnosis Assessment Notes Treatment Notes Treatment Clinical Notes 06/19/2024 Colon polyps (ICD-10 - K63.5) 06/19/2024 Heme + stool (ICD-10 - R19.5) 06/19/2024 Other hemorrhoids (ICD-10 - K64.8) PLAN OF TREATMENT Next Appt Details Provider Name:Thomas Peraza , 03/02/2025 09:30:00 AM, [address], [address], [place], [address],
--- OUTSIDE RECORDS SUMMARY | 2024-10-22 09:47 | XMS_ITS | Patient Health Record ---
Author Organization [facility] Address [address] [place] [address] Care Team Providers Care Printed Circuit Boards Pinner Name Role Phone Joana CARTER, Bob Primary Care Provider Thomas Wylie [phone] ALLERGIES No Known Allergies RESULTS Component Value Reference Range Notes Glucose, Whole Blood Reviewed date:06/19/2024 06:24:51 PM Interpretation: Performing Lab:[facility], [address] [place] [phone] Notes/Report: Glucose, Whole Blood 136 60-115 mg/dL METER # : [id number] Pathology Reviewed date:07/03/2024 04:54:52 PM Interpretation: Performing Lab:[facility], [address] [place] [phone] Notes/Report: REASON FOR REFERRAL No Information MEDICATIONS [...] + stool (R19.5) Active confirmed Abnormal feces (126725185) Problem Colon cancer screening (Z12.11) Active confirmed Colon cancer screening (747664914) VITAL SIGNS Temperature 97.8 degrees Fahrenheit 03/04/2024 Blood pressure diastolic 00 mm Hg 03/04/2024 Height 5 ft 7 in in 03/04/2024 Blood pressure systolic 000 mm Hg 03/04/2024 Weight 226 lb 8 oz lbs 03/04/2024 BMI 35.47 kg/m2 03/04/2024 Encounters Encounter Location Date Provider Diagnosis [facility] Outpatient [address] [place] [phone] 06/19/2024 Thomas Peraza Colon polyps K63.5 ; Heme + stool R19.5 and Other hemorrhoids K64.8 [facility] [address] [place] [phone] 11/08/2023 Thomas Peraza [facility] [address] [place] [phone] 03/04/2024 Thomas Peraza Heme + stool R19.5 and Colon cancer screening Z12.11 [facility] [address] [place] [phone] 03/05/2024 Thomas Peraza [facility] [address] [place] [phone] 06/19/2024 Thomas Peraza [facility] [address] [place] [phone] 06/30/2024 Thomas Peraza ASSESSMENTS Encounter Date Diagnosis [...] Provider Name:Thomas Peraza , 03/02/2025 09:30:00 AM, [address] [place] [address], [address], [place], [address], Insurance Providers Payer Name Payer Address Payer Phone Subscriber Number Group Number Insured Name Patient Relationship to Insured Coverage Start Date Coverage End Date [facility] [address] Attn Claims JOANN John [id number] COLON, MELANY Self - patient is the insured MEDICAL (GENERAL) HISTORY Medical History History ICD Code NIDDM HTN Anxiety Denies DC,CVA,Lung disease,renal disease Surgical History Surgery Date(Month/Year) Anal lesion-benign
== END 2024-10-22 10:01 | disposition home or self-care (01) ==
PROVIDERS: PCP Internal Medicine; Visit Provider Internal Medicine
DX: E11.69 Type 2 diabetes mellitus with other specified complication (principal); E66.01 Morbid (severe) obesity due to excess calories; Z68.35 Body mass index [BMI] 35.0-35.9, adult

== ENCOUNTER → 2024-10-22 09:32 | Outpatient (BNVA) | payer OTHER, SELFPAY | PROVIDERS: PCP Internal Medicine; Visit Provider Internal Medicine | DX: E11.69 Type 2 diabetes mellitus with other specified complication (principal); E66.01 Morbid (severe) obesity due to excess calories; F31.9 Bipolar disorder, unspecified; I10 Essential (primary) hypertension; Z68.35 Body mass index [BMI] 35.0-35.9, adult | CPT/HCPCS: 83036; 96127; 99212 ==

== ENCOUNTER 2025-04-09 08:56 | Outpatient (REF) | payer OTHER, SELFPAY ==
[2025-04-09 10:27] LABS: MANUAL DIFF FLAG NO
[2025-04-09 11:25] LABS: Appearance Urine Clear; Color Urine Yellow; Glucose Urine UA Negative (Negative); Leukocyte Esterase Urine Negative (Negative); Nitrite Urine Negative (Negative); PH 5.5 (5.0-9.0); Specific Gravity - Urine >= 1.030 (1.005-1.025); Urine Blood Negative (Negative); Urine Ketones Negative (Negative); Urine Protein Negative (Neg-Trace)
[2025-04-09 11:28] LABS: Basophils Percent Auto 0.3 % (0-2); Eosinophils Absolute Auto 0.1 X10*3/uL (0.0-0.4); Hematocrit 45.2 % (42.0-52.0); Hemoglobin 15.2 g/dl (14.0-18.0); Imm Gran Abs Auto 0.02 X10*3/uL (0.00-0.03); Imm Gran Pct Auto 0.3 % (0.0-0.4); Lymphocytes Absolute Auto 2.4 X10*3/uL (1.2-4.9); Lymphocytes Percent Auto 33.7 % (20-40); Mean Corpuscular HGB Conc 33.6 g/dl (31.0-36.0); Mean Corpuscular Hemoglobin 28.7 pg (27.0-33.0); Mean Corpuscular Volume 85.3 fL (80.0-98.0); Mean Platelet Volume 9.5 fL (9.4-12.4); Monocytes Absolute Auto 0.4 X10*3/uL (0.1-1.2); Neutrophils Absolute Auto 4.2 x10*3/uL (2.0-8.3); Neutrophils Percent Auto 58.7 % (45-73); Platelet Count 360 X10*3/uL (160-400); Red Cell Distribution Width 12.3 % (11.0-16.0); White Blood Count 7.2 X10*3/uL (4.8-10.8)
[2025-04-09 11:50] LABS: Alanine Aminotransferase 38 U/L (0-40); Albumin Level 4.9 g/dL (3.5-5.0); Alkaline Phosphatase 99 U/L (39-117); Anion Gap 13 (12-20); Aspartate Amino Transferase 29 U/L (5-37); Blood Urea Nitrogen 22 mg/dL (9-16); Calcium 9.7 mg/dL (8.4-10.2); Carbon Dioxide 23 mmol/L (22-29); Chloride 106 mmol/L (96-108); Cholesterol 213 mg/dL (<200); Estimated Glomerular Filt Rate > 60; Glucose Fasting 104 mg/dL (60-99); HDL Cholesterol 33 mg/dL (>40); LDL Cholesterol Calculated 157 mg/dL (<100); Potassium 3.8 mmol/L (3.3-5.1); Sodium 138 mmol/L (135-145); Total Protein 8.2 g/dL (6.5-8.0); Triglycerides 116 mg/dL (<150)
[2025-04-09 12:05] LABS: HIV AB/AG Nonreactive (Nonreactive); HIV Num 1 0.05 S/CO (0.00-0.99)
[2025-04-09 12:07] LABS: Syphilis Screen Nonreactive (Nonreactive)
[2025-04-09 12:13] LABS: TSH reflex Free T4 1.16 uIU/mL (0.32-4.0); Vitamin D 25-OH Total 57.7 ng/mL (>30)
[2025-04-09 12:42] LABS: CT PCR Urine NOT DETECTED (Not Detect.); NG PCR Urine NOT DETECTED (Not Detect.)
== END 2025-04-09 08:57 | disposition home or self-care (01) ==
LOC: HO.LAB 08:56
DX: Z00.00 Encounter for general adult medical examination without abnormal findings (principal); Z20.2 Contact with and (suspected) exposure to infections with a predominantly sexual mode of transmission; E11.69 Type 2 diabetes mellitus with other specified complication; E66.811 Obesity, class 1; E66.01 Morbid (severe) obesity due to excess calories; Z68.30 Body mass index [BMI] 30.0-30.9, adult; I10 Essential (primary) hypertension; F31.9 Bipolar disorder, unspecified; G47.00 Insomnia, unspecified; R93.3 Abnormal findings on diagnostic imaging of other parts of digestive tract; Z71.3 Dietary counseling and surveillance
CPT/HCPCS: 36415; 80053; 80061; 81003; 82306; 83036; 84443; 85025; 86780; 87389; 87491; 87591; 96127; 99396

== ENCOUNTER 2025-04-09 08:56 | Outpatient (AMB) | payer OTHER, SELFPAY ==
--- NOTE | 2025-04-09 08:33 | MHC.PC.OV ---
Vital Signs 04/09/25 08:57 Height 5 ft 7 in Weight 192 lb 8 oz BMI 30.1 BP 126/84 Blood Pressure Location Lt brachial Position Sitting Respiration 16 Pulse 73 Pulse Source Pulse Oximeter Temp 98.7 F Temp Source Oral Pulse Oximetry (%) 96 Oxygen Delivery Method Room Air Intake Visit Reasons: GHULAM from [facility] [employer] Required: No Accompanied by: Self / Same As Patient Allergies No Known Allergies Allergy (Verified 04/09/25 09:23) Medication List - Last Reconciled 04/09/25 by ANUP Dixon clonazepam 2 mg PO BEDTIME PRN hydroxyzine pamoate 25 mg PO BEDTIME PRN lisinopril 10 mg PO DAILY metformin 1,000 mg PO BID zolpidem 10 mg PO BEDTIME Tobacco use date assessed: 04/09/25 Dental Screening Dental Screen Date: 04/09/25 Did you have a dental visit in the last 12 months?: Yes Did you have a dental problem in the last 6 months where you did not have access to dental care?: No Was dental information given to patient?: Patient has dentist HPI GHULAM from [facility] HPI Details Dentist: up to date Eye: About two years Snellen: Right: Left: Corrected vision: yes, STI screening: Colonoscopy:2023-will repeat this June due to one of his polyps was cancerous Pap Smer:n/a PHQ-9: Flu: usually takes this annually COVID: x3 Tdap:2017 Diet: Cutting down on high cholesterol foods Exercise: home gym, he has been tying lose weight The patient is a 49-year-old male presenting for a routine physical examination and management of chronic conditions. The patient has a history of diabetes mellitus, which is currently managed with oral hypoglycemic agents. He reports a significant weight loss of 35 pounds, which he attributes to increased physical activity and dietary changes. His last hemoglobin A1c was elevated in October, leading to an adjustment in his medication regimen. The patient also has a history of hypertension, for which he is taking lisinopril 10 mg daily. He monitors his blood pressure regularly and reports it is well-controlled. Hyperlipidemia is another concern, although the patient is not currently on medication for this condition. He is aware of the need to monitor his cholesterol levels, especially given his family history and previous lab results. The patient experiences anxiety and insomnia, for which he takes clonazepam and Ambien as needed. He is under the care of a psychiatrist and therapist, with regular follow-ups scheduled. Preventative care measures include a scheduled colonoscopy in June, as part of routine cancer screening. The patient psychiatrist every 3 months and therapist every two [facility] Medical History Anxiety HTN (hypertension) Diabetes Perianal lesion Bipolar disorder Obesity Surgical History Hx of colonoscopy H/O local excision of skin lesion (11/22/22) No pertinent past surgical history Social History Housing: Apartment Patient Tobacco Use Status: Former Tobacco user Tobacco use type: Cigarette e-Cigarette/Vaping Use: Never Used Second Hand Smoke Exposure: No service: No Current occupational status: disabled Cognitive needs: Yes Hearing needs: Yes (deaf) Vision needs: Yes Questionnaire PHQ-9 Over the last 2 weeks, how often have you been bothered by any of the following problems? 1. Little interest or pleasure in doing things: not at all 2. Feeling down, depressed, or hopeless: not at all 3. Trouble falling or staying asleep, or sleeping too much: not at all 4. Feeling tired or having little energy: not at all 5. Poor appetite or overeating: not at all 6. Feeling bad about yourself - or that you are a failure or have let yourself or your family down: not at all 7. Trouble concentrating on things, such as reading the newspaper or watching television: not at all 8. Moving or speaking so slowly that other people could have noticed. Or the opposite - being so fidgety or restless that you have been moving around a lot more than usual: not at all 9. Thoughts that you would be better off or of hurting yourself in some way: not at all Total score: 0 Depression Screening Interpretation: Negative Depression Screening Done: Yes 67187 - PHQ-9 Billing: Yes Source: Developed by Drs. Thomas Phillips, Emy Hemphill, Hank Marroquin and colleagues, with an educational beba from [employer]. Thrive Questionnaire Date Thrive assessed: 04/09/25 I am a: Patient What is your living situation today?: I have a steady place to live Within the past 12 months, did the food you bought not last and you didn't have the money to get more?: Never true Within the past 12 months, did you worry whether your food would run out before you got money to buy more?: Never true Do you have trouble paying for medicines?: No Do you have trouble getting transportation to medical appointments?: No Do you have trouble paying your heating and electricity bill?: No Do you have trouble taking care of your child, family member or friend?: No Do you have trouble with day-to-day activities such as bathing, preparing meals, shopping, managing finances, etc.?: No Are you currently unemployed and looking for a job?: No Are you interested in more education?: No Please select the resources that you would like help with: None Currently or been in a relationship where the following occur: No concerns reported THRIVE Score: 0 AUDIT C Alcohol Use Questionnaire (AUDIT-C) 1. How often do you have a drink containing alcohol?: Never 3. How often do you have six or more drinks on one occasion?: Never Total Score: 0 MARU-7 AMB Questionnaire MARU-7 Date MARU - 7 assessed: 04/09/25 Feeling nervous, anxious, or on edge: 0 = Not at all Not being able to stop or control worryin = Not at all Worrying too much about different things: 0 = Not at all Trouble relaxin = Not at all Being so restless that it is hard to sit still: 0 = Not at all Becoming easily annoyed or irritable: 0 = Not at all Feeling afraid as if something awful might happen: 0 = Not at all Total MARU-7 score (0-4 normal; 5-9 mild; 10-14 moderate; 15-21 severe): 0 Source: Developed by Drs. Thomas Phillips, Emy Hemphill, Hank Marroquin and colleagues, with an educational beba from [employer]. MARU-7 Assessment Billing MARU-7 Assessment Tool: MARU-7 Assessment 35287 Review of Systems Const Denies headache(s) Eyes Denies loss of vision ENT Denies vertigo, Denies dizziness, Denies headache(s) and Denies sore throat Card Denies chest pain, Denies leg edema and Denies lightheadedness Resp Denies cough, Denies hemoptysis and Denies wheezing GI Denies abdominal pain, Denies melena, Denies constipation, Denies diarrhea and Denies vomiting Denies dysuria, Denies urinary frequency and Denies urinary urgency Musc Denies arthralgias, Denies joint swelling, Denies numbness and Denies tingling Neuro Denies Abnormal speech present, Denies behavioral changes, Denies vertigo, Denies dizziness, Denies headache(s), Denies loss of vision, Denies memory loss, Denies numbness and Denies tingling Psych Denies anxiety, Denies behavioral changes, Denies depression, Denies memory loss and Denies panic attacks Mario/Lymph Denies easy bleeding and Denies easy bruising Aller/Immun Denies wheezing Physical exam (Primary Care) Vital Signs: Last Vital Signs Temp 98.7 F 04/09/25 08:57 Pulse 73 04/09/25 08:57 Resp 16 04/09/25 08:57 BP 126/84 04/09/25 08:57 Pulse Ox 96 04/09/25 08:57 Oxygen Delivery Method Room Air 04/09/25 08:57 BMI result Body Mass Index 30.1 Tobacco/Smoking Status: Tobacco use Status Tobacco use date assessed 04/09/25 04/09/25 09:01 Patient Tobacco Use Status Former Tobacco user 04/09/25 08:35 Tobacco use type Cigarette 04/09/25 08:35 e-Cigarette/Vaping Use Never Used 04/09/25 08:35 PHQ-9: PHQ-9 Score PHQ-9: Total score 0 04/09/25 09:39 Depression Screening Interpretation: Negative Thrive Assessment: Date of Thrive Assessment Date Thrive assessed 04/09/25 04/09/25 09:01 Currently or been in a relationship where the following occur: No concerns reported Const General: healthy appearing, no acute distress, alert and awake Nutritional Appearance: well nourished Orientation/consciousness: oriented to person, oriented to place and oriented to time HENMT Ears: TM's normal bilaterally General nose exam: Normal nasal mucous membranes and turbinates present Eyes Conjunctivae: conjunctivae normal Sclerae: sclerae normal Pupils: Equal, round and reactive pupils present Neck Neck: Yes no lymphadenopathy and Yes no JVD Thyroid: Thyroid normal Carotids: no bruits Resp Effort & Inspection: normal respiratory effort and not tachypneic Auscultation: no crackles, no rales, no rhonchi and no wheezes Cardio Rate: regular rate Rhythm: regular rhythm Heart sounds: no murmurs and normal S1 and S2 GI Palpation (GI): Soft to palpation, nontender, no hepatomegaly and no splenomegaly Auscultation: normal bowel sounds General: Yes no CVA tenderness Back/Spine/Pelvis Back: no CVA tenderness Thoracic/Lumbar Spine: No lumbar spinal tenderness Skin General skin exam: no rashes or lesions noted and dry skin Neuro General: oriented to person, oriented to place and oriented to time Cranial nerves: Yes Equal, round and reactive pupils present Speech: No Abnormal speech present Gait exam (Neuro): Normal gait present Motor exam (neuro): no tremor noted Deep tendon reflexes (DTR's): Right triceps reflex intensity grade: 2+, Left triceps reflex intensity grade: 2+, Rt Biceps (C5, C6): 2+, Left biceps reflex intensity grade: 2+, Right brachioradialis reflex intensity grade: 2+, Left brachioradialis reflex intensity grade: 2+, Right patellar reflex intensity grade: 2+ and Left patellar reflex intensity grade: 2+ Extrem Right upper extremity: full ROM Left upper extremity: full ROM Right lower extremity: full ROM; no edema Left lower extremity: full ROM; no edema Psych Mental Status: mental status grossly normal Speech and movement: Normal speech and movement present Affect: normal affect Attitude: cooperative Thought process: Normal thought process present Results AMB Hemoglobin A1c AMB Hemoglobin A1c 6.3 % Last Edit by MARIELY Murcia on 04/09/25 09:46 Results Reviewed Results Reviewed: a1c 6.3% Coding Level of Care Code Est Pt Prev Care 40-64y(40891) Diagnoses Physical exam Z00.00 Screening for STD (sexually transmitted disease) Z11.3 Class 1 obesity with serious comorbidity and body mass index (BMI) of 30.0 to 30.9 in adult, unspecified obesity type E66.811; Z68.30 Obesity type: unspecified obesity type Obesity classification: adult class 1 (BMI 30 - 34.9) Serious obesity comorbidity presence: with serious comorbidity Body mass index: BMI 30.0-30.9 Type 2 diabetes mellitus with morbid obesity E11.69; E66.01 Hypertension, unspecified type I10 Hypertension type: unspecified Bipolar affective disorder, remission status unspecified F31.9 Active/Remission status: remission status unspecified Insomnia, unspecified type G47.00 Insomnia type: unspecified Abnormal colonoscopy R93.3 Additional Codes PHQ-9 - 27306 - PHQ-9 Billing: Yes ([id number]) MARU-7 Assessment Billing - MARU-7 Assessment Tool: MARU-7 Assessment 32149 ([id number]) Time Spent (min) 38 Assessment & Plan Assessment & Plan (1) Physical exam: Code(s): Z00.00 - Encounter for general adult medical examination without abnormal findings Category: Medical Plan: No recent labs to review. Preventive guidelines reviewed with patient. Colonoscopy done in 2023-to be repeated in 06/2025 due to high grade dysplasia noted with biopsy of polyps. We will order labs and advise (2) Screening for STD (sexually transmitted disease): Code(s): Z11.3 - Encounter for screening for infections with a predominantly sexual mode of transmission Category: Medical Plan: STD testing ordered (3) Obesity: Code(s): E66.9 - Obesity, unspecified Category: Medical Qualifiers: Obesity type: unspecified obesity type Obesity classification: adult class 1 (BMI 30 - 34.9) Serious obesity comorbidity presence: with serious comorbidity Body mass index: BMI 30.0-30.9 Qualified Code(s): E66.811 - Obesity, class 1; Z68.30 - Body mass index [BMI] 30.0-30.9, adult Plan: Patient lost 35 lb since last seen in office. Continue lifestyle modifications including dietary changes and physical activity (4) Type 2 diabetes mellitus with morbid obesity: Code(s): E11.69 - Type 2 diabetes mellitus with other specified complication; E66.01 - Morbid (severe) obesity due to excess calories Category: Medical Plan: A1c 6.3% in office, decreased from 10.4% in 10/2024. Metformin was increased to 1000mg bid and the patient has been working out and dieting. He noted that his blood sugar was 101 couple months ago and self decreased metformin back to 500 mg 2 times a day. We will change back as ordered to metformin 500 mg 2 times a day. We will recheck A1c in 3 months (5) Hypertension: Code(s): I10 - Essential (primary) hypertension Category: Medical Qualifiers: Hypertension type: unspecified Qualified Code(s): I10 - Essential (primary) hypertension Plan: Blood pressure 126/84-goal is systolic less than 130mm Reinforced low-salt diet Continue lisinopril 10 mg daily (6) Bipolar disorder: Code(s): F31.9 - Bipolar disorder, unspecified Category: Medical Qualifiers: Active/Remission status: remission status unspecified Qualified Code(s): F31.9 - Bipolar disorder, unspecified Plan: Continue clonazepam 2 mg at bedtime p.r.n. and hydroxyzine pamoate 25 mg at bedtime p.r.n. Follow up with Psychiatry/therapy as scheduled (7) Insomnia: Code(s): G47.00 - Insomnia, unspecified Category: Medical Qualifiers: Insomnia type: unspecified Qualified Code(s): G47.00 - Insomnia, unspecified Plan: Reinforced sleep hygiene Continue Ambien 10 mg at bedtime Follow up with Psychiatry as scheduled (8) Abnormal colonoscopy: Code(s): R93.3 - Abnormal findings on diagnostic imaging of other parts of digestive tract Category: Medical Plan: Patient was found to have 50 cm polyps. 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 Colonoscopy done in 2023 to be repeated in June of 2025 for close monitoring. Orders: Orders AMB Hemoglobin A1c Today Z13.9 - Encounter for screening, unspecified TSH reflex Free T4 Today E11.69 - Type 2 diabetes mellitus with other specified complication, E66.01 - Morbid (severe) obesity due to excess calories, F31.9 - Bipolar disorder, unspecified, I10 - Essential (primary) hypertension, R73.9 - Hyperglycemia, unspecified, Z00.00 - Encounter for general adult medical examination without abnormal findings, Z11.3 - Encounter for screening for infections with a predominantly sexual mode of transmission Comprehensive [place]. Panel Fast Today E11.69 - Type 2 diabetes mellitus with other specified complication, E66.01 - Morbid (severe) obesity due to excess calories, F31.9 - Bipolar disorder, unspecified, I10 - Essential (primary) hypertension, R73.9 - Hyperglycemia, unspecified, Z00.00 - Encounter for general adult medical examination without abnormal findings, Z11.3 - Encounter for screening for infections with a predominantly sexual mode of transmission Syphilis Screen Today - Type 2 diabetes mellitus with other specified complication, E66.01 - Morbid (severe) obesity due to excess calories, F31.9 - Bipolar disorder, unspecified, I10 - Essential (primary) hypertension, R73.9 - Hyperglycemia, unspecified, Z00.00 - Encounter for general adult medical examination without abnormal findings, Z11.3 - Encounter for screening for infections with a predominantly sexual mode of transmission HIV Ab/Ag Today - Type 2 diabetes mellitus with other specified complication, E66.01 - Morbid (severe) obesity due to excess calories, F31.9 - Bipolar disorder, unspecified, I10 - Essential (primary) hypertension, R73.9 - Hyperglycemia, unspecified, Z00.00 - Encounter for general adult medical examination without abnormal findings, Z11.3 - Encounter for screening for infections with a predominantly sexual mode of transmission CT NG by PCR Urine Today - Type 2 diabetes mellitus with other specified complication, E66.01 - Morbid (severe) obesity due to excess calories, F31.9 - Bipolar disorder, unspecified, I10 - Essential (primary) hypertension, R73.9 - Hyperglycemia, unspecified, Z00.00 - Encounter for general adult medical examination without abnormal findings, Z11.3 - Encounter for screening for infections with a predominantly sexual mode of transmission Vitamin D 25-OH Total Today - Type 2 diabetes mellitus with other specified complication, E66.01 - Morbid (severe) obesity due to excess calories, F31.9 - Bipolar disorder, unspecified, I10 - Essential (primary) hypertension, R73.9 - Hyperglycemia, unspecified, Z00.00 - Encounter for general adult medical examination without abnormal findings, Z11.3 - Encounter for screening for infections with a predominantly sexual mode of transmission UA CC w/rflx Micro + Cult Today - Type 2 diabetes mellitus with other specified complication, E66.01 - Morbid (severe) obesity due to excess calories, F31.9 - Bipolar disorder, unspecified, I10 - Essential (primary) hypertension, R73.9 - Hyperglycemia, unspecified, Z00.00 - Encounter for general adult medical examination without abnormal findings, Z11.3 - Encounter for screening for infections with a predominantly sexual mode of transmission Lipid Panel Today E11.69 - Type 2 diabetes mellitus with other specified complication, E66.01 - Morbid (severe) obesity due to excess calories, F31.9 - Bipolar disorder, unspecified, I10 - Essential (primary) hypertension, R73.9 - Hyperglycemia, unspecified, Z00.00 - Encounter for general adult medical examination without abnormal findings, Z11.3 - Encounter for screening for infections with a predominantly sexual mode of transmission Complete Blood Count Auto Diff Today E11.69 - Type 2 diabetes mellitus with other specified complication, E66.01 - Morbid (severe) obesity due to excess calories, F31.9 - Bipolar disorder, unspecified, I10 - Essential (primary) hypertension, R73.9 - Hyperglycemia, unspecified, Z00.00 - Encounter for general adult medical examination without abnormal findings, Z11.3 - Encounter for screening for infections with a predominantly sexual mode of transmission Referrals Ophthalmology Referral E11.69 - Type 2 diabetes mellitus with other specified complication, E66.01 - Morbid (severe) obesity due to excess calories Medications: Changed From metformin 1,000 mg PO BID 60 tabs 2RF To metformin 500 mg (1/2 x 1,000 mg) PO BID 60 tabs 2RF
[2025-04-09 08:57] VITALS: BP 126/84; PULSE 73; RESP 16; TEMP 37.1; O2SAT 96; BMI 30.1
--- OUTSIDE RECORDS SUMMARY | 2025-04-09 09:12 | XMS_ITS | Clinical Summary ---
Author Organization [facility] it Address [address] [place] [address] Care Team Providers Care Person Investigator Name Role Phone Unavailable Primary Care Provider Unavailabl e Social History Tobacco Use Types Packs/Day Years Used Date Smoking Tobacco: Never Assessed Sex and Gender Information Value Date Recorded Sex Assigned at Not on file Legal Sex Male 1:36 PM EDT Gender Identity Not on file Sexual Orientation Not on file Plan of Treatment Health Maintenance Due Date Last Done Comments DTaP,Tdap,and Td Vaccines (1 - Tdap) 1993 Hepatitis B Vaccines (1 of 3 - 19+ 3-dose series) 1993 Pneumococcal Vaccine: 50+ Ye ars (1 of 1 - PCV) 2024 Zoster Vaccines (1 of 2) 2024 Cholesterol Screening (Lipid Panel) 05/15/2024 Colorectal Cancer Screening: Colonoscopy 05/15/2024 Depression Screening 05/15/2024 HIV Screening 05/15/2024 Hepatitis C Screening 05/15/2024 Social Influencers of Health Screening 05/15/2024 COVID-19 Vaccine ( - 2023-2 5 season) 2024 Influenza Vaccine (Season Ended) 2025 HIB Vaccines Aged Out No longer eligi ble based on patient's age to complete this topic HPV Vaccines Aged Out No longer eligi ble based on patient's age to complete this topic Hepatitis A Vaccines Aged Out No long er eligible based on patient's age to complete this topic IPV Vaccines Aged Out No longer eligi ble based on patient's age to complete this topic MMR Vaccines Aged Out No longer eligi ble based on patient's age to complete this topic Meningococcal ACWY Vaccine Aged Out N o longer eligible based on patient's age to complete this topic Meningococcal B Vaccine Aged Out No l onger eligible based on patient's age to complete this topic Pneumococcal Vaccine: Pediat rics (0 to 5 Years) and At-Risk Patients (6 to 64 Years) Aged Out No longer eligible b ased on patient's age to complete this topic RSV Immunization Patients Un lelo 20 months Aged Out No longer eligible b ased on patient's age to complete this topic Varicella Vaccines Aged Out No longer eligible based on patient's age to complete this topic
== END 2025-04-09 10:05 | disposition home or self-care (01) ==
LOC: HO.HMCH 08:56
DX: Z00.00 Encounter for general adult medical examination without abnormal findings (principal); E11.69 Type 2 diabetes mellitus with other specified complication; E66.01 Morbid (severe) obesity due to excess calories; Z68.30 Body mass index [BMI] 30.0-30.9, adult; F31.9 Bipolar disorder, unspecified; Z11.3 Encounter for screening for infections with a predominantly sexual mode of transmission; I10 Essential (primary) hypertension; G47.00 Insomnia, unspecified; R93.3 Abnormal findings on diagnostic imaging of other parts of digestive tract

== ENCOUNTER 2025-06-28 07:31 | Day surgery (SDC) | payer OTHER, SELFPAY ==
--- OUTSIDE RECORDS SUMMARY | 2024-06-19 04:30 | XMS_ITS ---
Author Organization [facility] Address [address] [place] [id number] Care Team Providers Care Mixed Livestock Farm Worker Name Role Phone Bob Bernard MD Primary Care Provider Thmoas Wylie [phone] REASON FOR VISIT screening,heme positive stools Encounters Encounter Location Date Provider Diagnosis [facility] [address] [place] [phone] 06/19/2024 Thomas Peraza Colon polyps K63.5 ; Heme + stool R19.5 and Other hemorrhoids K64.8 Assessments Encounter Date Diagnosis (ICD Code) Assessment Notes Treatment Notes Treatment Clinical Notes Section Notes 06/19/2024 Colon polyps (ICD-10 - K63.5) 06/19/2024 Heme + stool (ICD-10 - R19.5) 06/19/2024 Other hemorrhoids (ICD-10 - K64.8) Plan Of Treatment Next Appt Details Provider Name:Thomas Neves Peraza , 06/28/2025 08:30:00 AM, [address] [place] [address], [phone], Progress Notes * MELANY ABDUL MDOB:1975 (50 yo M)Acc No.[id number]:06/19/2024 COLON WITH MAC Patient: MELANY KAUR Provider: Misael Peraza MD :1975 A ge:49 Y S ex:Male Date:06/19/2024 Address:[address] [place], [place] [id number] Pcp:Bob Bernard MD Subjective: * Chief Complaints: * 1 . Screening,heme positive stools. * Medical History: Objective: * Vitals: Assessment: * Assessment: 1. C olon polyps - K63.5 (Primary) 2 . H solange + stool - R19.5 ?3. O ther hemorrhoids - K64.8 Plan: * Treatment: * Procedure Codes: 4 5385 LESION REMOVAL COLONOSCOPY, 44957 COLONOSCOPE, SUBMUCOUS INJ, Modifiers: 59 * * The named appointment provid er may or may not be the originator of this progress note, and it is not deemed complete until electronically signed by the appointment provider. Sign off status: Pending * Provider: Misael Peraza MD Date: 0 06/19/2024 Generated for Aminata carpenter/Jian/Yoanitting on: 05/10/2025 09:17 AM EDT
--- OUTSIDE RECORDS SUMMARY | 2025-05-10 09:18 | XMS_ITS | Clinical Summary ---
[facility] Organization [facility]y Address [address] [place] [address] Care Team Providers Care Janitorial Account Manager Name Role Phone Unavailable Primary Care Provider [...] Panel) 05/15/2024 Colorectal Cancer Screening: Colonoscopy 05/15/2024 HIV Screening 05/15/2024 Hepatitis C Screening 05/15/2024 Social Influencers of Health Screening 05/15/2024 COVID-19 Vaccine (1 - 2023-2 5 season) 2024 Depression Screening 10/14/2024 Influenza Vaccine (#1) 2025 HIB Vaccines Aged Out No longer [...]
[2025-06-24 13:58] VITALS: BMI 30.9
--- NOTE | 2025-06-25 09:10 | HO.ANESPROP2 ---
Documented by User: Barbi Ellington NP 06/25/25 09:10 HPI - Anesthesia Eval Consult details Narrative: 50yo M for Colonoscopy PMFSH Active Problems Active Problems: All Active Problems Abnormal colonoscopy (Acute) Insomnia (Acute) Screening for STD (sexually transmitted disease) (Acute) Hypertension (Acute) Type 2 diabetes mellitus with morbid obesity (Acute) Hyperglycemia (Acute) Physical exam (Acute) Perianal lesion (Acute) Bipolar disorder (Acute) Obesity (Acute) Past Medical History Medical History Anxiety HTN (hypertension) Diabetes Perianal lesion Bipolar disorder Obesity Surgical History Surgical History Hx of colonoscopy H/O local excision of skin lesion (11/22/22) No pertinent past surgical history History of Problems with Anesthesia: No Social History Social History Housing: Apartment Patient Tobacco Use Status: Former Tobacco user Tobacco use type: Cigarette e-Cigarette/Vaping Use: Never Used Second Hand Smoke Exposure: No Use of substances other than those prescribed or required for medical reasons: No Advance Directives: No Advance Directives Information Provided: Yes service: No Current occupational status: disabled Cognitive needs: Yes Hearing needs: Yes (deaf) Vision needs: Yes Meds Allergies Allergy/AdvReac Type Severity Reaction Status Date / Time No Known Allergies Allergy Verified 04/09/25 09:23 Home Medications ?Medication ?Instructions ?Recorded ?Confirmed ?Last Taken ?Type hydroxyzine pamoate 25 mg capsule 25 mg PO BEDTIME PRN Insomnia 07/10/21 06/24/25 Unknown History zolpidem 10 mg tablet 10 mg PO BEDTIME 07/10/21 06/24/25 Unknown History clonazepam 1 mg tablet 2 mg PO BEDTIME PRN Insomnia 01/29/22 06/24/25 Unknown History Exam Height,Weight and Vital Signs: Height 5 ft 7 in Weight 89.358 kg Assessment and Plan Assessment Anesthesia Assessment: Chart Reviewed Final Anesthetic Review History of Problems with Anesthesia: No Documented by User: Jesusita Valenzuela MD 06/28/25 07:59 PMF Past Medical History Medical History Anxiety HTN (hypertension) Diabetes Perianal lesion Bipolar disorder Obesity Family History Family history of problems with anesthesia: No Surgical History Surgical History Hx of colonoscopy H/O local excision of skin lesion (11/22/22) No pertinent past surgical history Social History Social History Housing: Apartment Patient Tobacco Use Status: Former Tobacco user Tobacco use type: Cigarette e-Cigarette/Vaping Use: Never Used Second Hand Smoke Exposure: No Use of substances other than those prescribed or required for medical reasons: No Advance Directives: No Advance Directives Information Provided: Yes service: No Current occupational status: disabled Cognitive needs: Yes Hearing needs: Yes (deaf) Vision needs: Yes Meds Allergies Allergy/AdvReac Type Severity Reaction Status Date / Time No Known Allergies Allergy Verified 04/09/25 09:23 Home Medications ?Medication ?Instructions ?Recorded ?Confirmed ?Last Taken ?Type hydroxyzine pamoate 25 mg capsule 25 mg PO BEDTIME PRN Insomnia 07/10/21 06/24/25 Unknown History zolpidem 10 mg tablet 10 mg PO BEDTIME 07/10/21 06/24/25 Unknown History clonazepam 1 mg tablet 2 mg PO BEDTIME PRN Insomnia 01/29/22 06/24/25 Unknown History Exam Airway Mallampati Class: II (2 loose teeth lateral on bottom) TM Dist: >3cm Neck ROM: Full Heart: rrr Lungs: cta Assessment and Plan Assessment Anesthesia Assessment: Anesthesia Plan Discussed Final Anesthetic Review Family History of Problems with Anesthesia: No NPO: Yes ASA Class: II Final Preanesthetic Review: No Changes in Pt Med Stat, Meds/Allgs Chart Reviewed and Consent Obtained/Reviewed Patient Risk: Low Procedure Risk: Low Anesthetic Plan Anesthetic Plan: MAC: Disposition: Standard PACU
[2025-06-28 07:48] VITALS: BMI 32.4
[2025-06-28 07:59] VITALS: BP 136/93; PULSE 72; RESP 16; TEMP 36.8; O2SAT 99
[2025-06-28 07:59] LABS: Glucose, Whole Blood 147 mg/dL (60-115)
[2025-06-28] MEDS: Lactated Ringers 1,000 ML 100 ML IVCONT (08:00)
[2025-06-28 09:47] VITALS: BP 104/63; PULSE 65; RESP 16; TEMP 36.2; O2SAT 98
--- NOTE | 2025-06-28 09:55 | PM.OP ---
Brief Operative Note Date of Service: 06/28/25 Pre-op diagnosis: Screening Post-op diagnosis: other (Colon polyp) Procedure: Colonoscopy to the cecum and TI with hot snare polypectomy and placement of 1 Resolution clip Surgeon: Thomas Peraza MD Anesthesia: MAC Was an It Infrastructure Project Manager used for this Procedure?: No Estimated blood loss (mL): 0 Pathology: other (A. Transverse colon polyp) Condition: stable Disposition: PACU
[2025-06-28 10:02] VITALS: BP 116/73; PULSE 76; RESP 17; O2SAT 98
--- NOTE | 2025-06-28 10:31 | OP_ITS ---
DATE OF SERVICE: 06/28/2025 SURGEON: Thomas Peraza MD INDICATIONS: The patient presents for followup of personal history of colon polyps and a malignant colon polyp. Full consent obtained from him for this, including risks of bleeding and perforation. PREOPERATIVE DIAGNOSIS: POSTOPERATIVE DIAGNOSIS: Colorectal cancer screening for personal history of colon polyps including a malignant polyp, colon polyp, diverticulosis, and internal hemorrhoids. PROCEDURE PERFORMED: Colonoscopy to the cecum and terminal ileum with hot snare polypectomy with placement of 1 resolution clip. ESTIMATED BLOOD LOSS: COMPLICATIONS: ANESTHESIA: Monitored anesthesia care. ASSISTANTS: SPECIMENS: PREOPERATIVE DIAGNOSES: Colorectal cancer screening for personal history of colon polyps including a malignant polyp. DESCRIPTION OF PROCEDURE: The patient was placed in the left lateral decubitus position. The digital rectal exam revealed no abnormalities. The Olympus video pediatric colonoscope was entered into the rectum and advanced easily to the cecum. Once in the cecum, I did identify normal-appearing cecal pouch with appendiceal orifice and normal-appearing ileocecal valve. The terminal ileum was cannulated and appeared normal. The scope was withdrawn back in the colon. The entire cecum and ileocecal valve appeared normal. The scope was slowly withdrawn assessing all mucosal surfaces carefully. Preparation was excellent. In the transverse colon was an approximately 10 mm polyp on a long stalk. This was removed by hot snare polypectomy with the head of the polyp being recovered by suction. There was still some residual stalk remaining and the majority of this was removed by hot snare polypectomy as well. This was also recovered by suction and placed in the same container. Post polypectomy, there was no bleeding. I did place a single resolution clip at the base of the stalk with good deployment and good hemostasis. I did not visualize any other polyps, colitis, or angiodysplasia. There was a mild amount of sigmoid diverticulosis. At 50 cm was a single submucosal ink nacho, but no sign of any residual polyp tissue. At 12 cm was another submucosal ink nacho. I was able to visualize the scar from the previous polypectomy, but the scar itself was clean and without any sign of residual polyp nor inflammation. In the rectum, scope was retroflexed visualizing internal hemorrhoids, but no other pathology. The rectal mucosa appeared normal. Scope was straightened and withdrawn from the patient. He tolerated the procedure well and was returned to recovery area in stable condition. IMPRESSION: 1. Colon polyp. 2. Diverticulosis. 3. Internal hemorrhoids. PLAN: Given his history I would recommend a repeat colonoscopy in 1 to 2 years for further screening and surveillance. He was advised not to use any aspirin and NSAIDs for 1 week. He will otherwise see me on a p.r.n. basis. MD SAMARA Tavera/EDWAR / [phone]
== END 2025-06-28 10:21 | disposition home or self-care (01) ==
PROVIDERS: Visit Provider Internal Medicine
PROC: 0DJD8ZZ Inspection of Lower Intestinal Tract, Via Natural or Artificial Opening Endoscopic (ICD-10-PCS; CPT 45378; principal; 2025-06-28 08:30)
DX: Z12.11 Encounter for screening for malignant neoplasm of colon (principal); K51.40 Inflammatory polyps of colon without complications; K57.30 Diverticulosis of large intestine without perforation or abscess without bleeding; K64.8 Other hemorrhoids; K62.89 Other specified diseases of anus and rectum; Z86.0101 Personal history of adenomatous and serrated colon polyps; Z85.038 Personal history of other malignant neoplasm of large intestine; E11.9 Type 2 diabetes mellitus without complications; I10 Essential (primary) hypertension; Z87.891 Personal history of nicotine dependence
CPT/HCPCS: 45385; 82947; 88305

== ENCOUNTER 2025-07-13 10:57 | Outpatient (AMB) | payer OTHER, SELFPAY ==
--- OUTSIDE RECORDS SUMMARY | 2024-06-19 04:30 | XMS_ITS ---
Author Organization [facility] Address [address] [place] [address] Care Team Providers Care Funeral Planning Counselor Name Role Phone Bob Bernard MD Primary Care Provider Ivona Thomas Watson [phone] REASON FOR VISIT screening,heme positive stools Encounters Encounter Location Date Provider Diagnosis [facility] [place] [address] [place] [phone] 06/19/2024 Thomas Peraza Colon polyps K63.5 ; Heme + stool R19.5 and Other hemorrhoids K64.8 Assessments Encounter Date Diagnosis (ICD Code) Assessment Notes Treatment Notes Treatment Clinical Notes Section Notes 06/19/2024 Colon polyps (ICD-10 - K63.5) 06/19/2024 Heme + stool (ICD-10 - R19.5) 06/19/2024 Other hemorrhoids (ICD-10 - K64.8) Plan Of Treatment No Information Progress Notes * MELANY ABDUL MDOB:1975 (50 yo M)Acc No.[id number]:06/19/2024 COLON WITH MAC Patient: MELANY KAUR Provider: Misael Peraza MD :1975 A ge:49 Y S ex:Male Date:06/19/2024 Address:[address] [place] [address] Pcp:Bob Bernard MD Subjective: * Chief Complaints: * 1 . Screening,heme positive stools. * Medical History: Objective: * Vitals: Assessment: * Assessment: 1. C olon polyps - K63.5 (Primary) 2 . H solange + stool - R19.5 ?3. O ther hemorrhoids - K64.8 Plan: * Treatment: * Procedure Codes: 4 5385 LESION REMOVAL COLONOSCOPY, 93977 COLONOSCOPE, SUBMUCOUS INJ, Modifiers: 59 * * The named appointment provid er may or may not be the originator of this progress note, and it is not deemed complete until electronically signed by the appointment provider. Sign off status: Pending * Provider: Misael Peraza MD Date: 0 06/19/2024 Generated for Aminata carpenter/Jian/Yoanitting on: 0 07/13/2025 12:21 PM EDT
--- OUTSIDE RECORDS SUMMARY | 2025-06-28 04:30 | XMS_ITS ---
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 Screening,adenocarcinoma in adenomatous polyp colon. * Medical History: Objective: * Vitals: Assessment: Plan: * Treatment: * * The named appointment provid er may or may not be the originator of this progress note, and it is not deemed complete until electronically signed by the appointment provider. Sign off status: Pending * Provider: Misael Peraza MD Date: 06/28/2025 Generated for Aminata carpenter/Jian/Yoanitting on: 07/13/2025 12:21 PM EDT
--- NOTE | 2025-07-13 11:00 | MHC.PC.OV ---
Vital Signs 07/13/25 11:01 Height 5 ft 7 in Weight 206 lb 2 oz BMI 32.3 BP 120/76 Blood Pressure Location Lt brachial Position Sitting Respiration 18 Pulse 69 Pulse Source Pulse Oximeter Temp 97.1 F Temp Source Temporal Artery Scan Pulse Oximetry (%) 97 Oxygen Delivery Method Room Air Intake Visit Reasons: dm/htn/hld Assistive Technology Specialist Required: No Accompanied by: Self / Same As Patient Allergies No Known Allergies Allergy (Verified 07/13/25 11:37) Medication List - Last Reconciled 07/13/25 by ANUP Dixon clonazepam 2 mg PO BEDTIME PRN hydroxyzine pamoate 25 mg PO BEDTIME PRN lisinopril 10 mg PO DAILY metformin 500 mg (1/2 x 1,000 mg) PO BID zolpidem 10 mg PO BEDTIME Tobacco use date assessed: 04/09/25 Dental Screening Dental Screen Date: 04/09/25 Did you have a dental visit in the last 12 months?: Yes Did you have a dental problem in the last 6 months where you did not have access to dental care?: No Was dental information given to patient?: Patient has dentist HPI dm/htn/hld HPI Details The patient is a 50-year-old male presenting with the management of chronic conditions including hypertension, diabetes mellitus, and hyperlipidemia. The patient has a history of hypertension, which has been well-controlled as indicated by normal blood pressure readings during the visit. He has been advised to continue monitoring his blood pressure regularly. The patient also has a history of diabetes mellitus, with recent improvements in his A1c levels, now at 6.3%. He is currently taking 500 mg of Metformin twice daily and has been advised to maintain dietary changes and exercise to further improve glycemic control. Hyperlipidemia is another chronic condition for which the patient is being monitored. Recent lab results show triglycerides have decreased, allowing for the measurement of LDL cholesterol, which is currently at 157 mg/dL, higher than the desired level for diabetic patients. The patient has been advised to continue dietary modifications to reduce cholesterol levels. The patient underwent a colonoscopy two weeks ago, which revealed a single polyp that was not cancerous. The procedure was otherwise unremarkable, and follow-up is recommended in one to two years due to his high risk. [facility] Medical History Anxiety HTN (hypertension) Diabetes Perianal lesion Bipolar disorder Obesity Surgical History Hx of colonoscopy H/O local excision of skin lesion (11/22/22) No pertinent past surgical history Social History Housing: Apartment Patient Tobacco Use Status: Former Tobacco user Tobacco use type: Cigarette e-Cigarette/Vaping Use: Never Used Second Hand Smoke Exposure: No service: No Current occupational status: disabled Cognitive needs: Yes Hearing needs: Yes (deaf) Vision needs: Yes Questionnaire Thrive Questionnaire Date Thrive assessed: 04/09/25 I am a: Patient What is your living situation today?: I have a steady place to live Within the past 12 months, did the food you bought not last and you didn't have the money to get more?: Often true Within the past 12 months, did you worry whether your food would run out before you got money to buy more?: Often true Do you have trouble paying for medicines?: Yes Do you have trouble getting transportation to medical appointments?: No Do you have trouble paying your heating and electricity bill?: Yes Do you have trouble taking care of your child, family member or friend?: No Do you have trouble with day-to-day activities such as bathing, preparing meals, shopping, managing finances, etc.?: No Are you currently unemployed and looking for a job?: No Are you interested in more education?: Yes Currently or been in a relationship where the following occur: No concerns reported THRIVE Score: 3 MARU-7 AMB Questionnaire MARU-7 Date MARU - 7 assessed: 04/09/25 Source: Developed by Drs. Thomas Phillips, Emy Hemphill, Hank Marroquin and colleagues, with an educational beba from [employer]. Review of Systems Const Denies body aches, Denies chills, Denies fever(s), Denies headache(s) and Denies poor appetite Eyes Reports no additional complaints ENT Denies dysphagia, Denies dizziness, Denies headache(s) and Denies odynophagia Card Denies chest pain, Denies syncope, Denies edema, Denies irregular heart rhythm, Denies lightheadedness and Denies dyspnea Resp Denies cough and Denies dyspnea GI Denies abdominal pain, Denies constipation, Denies dysphagia, Denies diarrhea, Denies nausea, Denies odynophagia and Denies vomiting Reports no additional complaints Musc Reports no additional complaints and Denies abnormal gait Skin/Breast Reports system reviewed and no additional complaints, except as documented Neuro Denies abnormal gait, Denies dizziness, Denies syncope and Denies headache(s) Psych Reports no additional complaints Physical exam (Primary Care) Vital Signs: Last Vital Signs Temp 97.1 F 07/13/25 11:01 Pulse 69 07/13/25 11:01 Resp 18 07/13/25 11:01 BP 120/76 07/13/25 11:01 Pulse Ox 97 07/13/25 11:01 Oxygen Delivery Method Room Air 07/13/25 11:01 BMI result Body Mass Index 32.3 Tobacco/Smoking Status: Tobacco use Status Tobacco use date assessed 04/09/25 07/13/25 11:03 Patient Tobacco Use Status Former Tobacco user 07/13/25 11:03 Tobacco use type Cigarette 07/13/25 11:03 e-Cigarette/Vaping Use Never Used 07/13/25 11:03 Thrive Assessment: Date of Thrive Assessment Date Thrive assessed 04/09/25 07/13/25 11:03 Currently or been in a relationship where the following occur: No concerns reported Const General: cooperative, healthy appearing, comfortable and no acute distress Orientation/consciousness: patient oriented x3 HENMT Head: Yes normocephalic Ears: hearing grossly normal bilaterally General nose exam: Normal external nose present Eyes General: appearance normal, both eyes and all related structures Conjunctivae: conjunctivae normal Neck Neck: Yes full ROM and Yes no lymphadenopathy Resp Effort & Inspection: normal respiratory effort Auscultation: clear to auscultation bilaterally, no crackles, no rales, no rhonchi and no wheezes Cardio Rate: regular rate Rhythm: regular rhythm GI Palpation (GI): Soft to palpation and nontender Auscultation: normal bowel sounds General: Yes no CVA tenderness Back/Spine/Pelvis Back: no CVA tenderness Skin General skin exam: no rashes or lesions noted Neuro General: patient oriented x3 Gait exam (Neuro): Normal gait present Extrem General: Yes normal to inspection, Yes full ROM and No edema Psych Affect: normal affect Attitude: cooperative Insight: Good insight present (Psych) Judgement: Good judgement present (Psych) Results Reviewed Results Reviewed: Laboratory Tests 04/09/25 04/09/25 04/09/25 09:08 10:24 10:25 WBC 7.2 RBC 5.30 Hgb 15.2 Hct 45.2 MCV 85.3 MCH 28.7 MCHC 33.6 RDW 12.3 Plt Count 360 Sodium 138 Potassium 3.8 Chloride 106 Carbon Dioxide 23 Anion Gap 13 BUN 22 H Creatinine 0.90 Estimated GFR > 60 POC Glucose Fasting Glucose 104 H Hgb A1c (Clinic) 6.3 H Calcium 9.7 D Total Bilirubin 1.0 AST 29 ALT 38 Alkaline Phosphatase 99 Total Protein 8.2 H Albumin 4.9 Triglycerides 116 Cholesterol 213 H LDL Cholesterol, Calc 157 H HDL Cholesterol 33 L 25-OH Vitamin D Total 57.7 TSH 1.16 Urine Color Yellow Urine Appearance Clear Urine pH 5.5 Ur Specific [place] >= 1.030 H Urine Protein Negative Urine Glucose (UA) Negative Urine Ketones Negative Urine Blood Negative Urine Nitrite Negative Ur Leukocyte Esterase Negative Ur N gonorrhoeae DNA (PCR) NOT DETECTED 06/28/25 07:56 WBC RBC Hgb Hct MCV MCH MCHC RDW Plt Count Sodium Potassium Chloride Carbon Dioxide Anion Gap BUN Creatinine Estimated GFR POC Glucose 147 H Fasting Glucose Hgb A1c (Clinic) Calcium Total Bilirubin AST ALT Alkaline Phosphatase Total Protein Albumin Triglycerides Cholesterol LDL Cholesterol, Calc HDL Cholesterol 25-OH Vitamin D Total TSH Urine Color Urine Appearance Urine pH Ur Specific [place] Urine Protein Urine Glucose (UA) Urine Ketones Urine Blood Urine Nitrite Ur Leukocyte Esterase Ur N gonorrhoeae DNA (PCR) Coding Level of Care Code Est Pt Level 4 (94894) Diagnoses Class 1 obesity with serious comorbidity and body mass index (BMI) of 30.0 to 30.9 in adult, unspecified obesity type E66.811; Z68.30 Obesity type: unspecified obesity type Obesity classification: adult class 1 (BMI 30 - 34.9) Serious obesity comorbidity presence: with serious comorbidity Body mass index: BMI 30.0-30.9 Type 2 diabetes mellitus with morbid obesity E11.69; E66.01 Hypertension, unspecified type I10 Hypertension type: unspecified Bipolar affective disorder, remission status unspecified F31.9 Active/Remission status: remission status unspecified Insomnia, unspecified type G47.00 Insomnia type: unspecified Abnormal colonoscopy R93.3 Time Spent (min) 38 Assessment & Plan Assessment & Plan (1) Obesity: Code(s): E66.9 - Obesity, unspecified Category: Medical Qualifiers: Obesity type: unspecified obesity type Obesity classification: adult class 1 (BMI 30 - 34.9) Serious obesity comorbidity presence: with serious comorbidity Body mass index: BMI 30.0-30.9 Qualified Code(s): E66.811 - Obesity, class 1; Z68.30 - Body mass index [BMI] 30.0-30.9, adult Plan: Continue lifestyle modifications including dietary changes and physical activity (2) Type 2 diabetes mellitus with morbid obesity: Code(s): E11.69 - Type 2 diabetes mellitus with other specified complication; E66.01 - Morbid (severe) obesity due to excess calories Category: Medical Plan: A1c 6.3% in office, decreased from 10.4% in 10/2024. Metformin was increased to 1000mg bid and the patient has been working out and dieting. He noted that his blood sugar was 101 couple months ago and self decreased metformin back to 500 mg 2 times a day. The order was changed to metformin 500 mg 2 times a day. The would also benefit from a GLP-1 to help with his obesity as well. Ozempic 0.25mg was ordered. We will recheck A1c in 3 months (3) Hypertension: Code(s): I10 - Essential (primary) hypertension Category: Medical Qualifiers: Hypertension type: unspecified Qualified Code(s): I10 - Essential (primary) hypertension Plan: Blood pressure 120/76-goal is systolic less than 130mm Reinforced low-salt diet Continue lisinopril 10 mg daily (4) Bipolar disorder: Code(s): F31.9 - Bipolar disorder, unspecified Category: Medical Qualifiers: Active/Remission status: remission status unspecified Qualified Code(s): F31.9 - Bipolar disorder, unspecified Plan: Continue clonazepam 2 mg at bedtime p.r.n. and hydroxyzine pamoate 25 mg at bedtime p.r.n. Follow up with Psychiatry/therapy as scheduled (5) Insomnia: Code(s): G47.00 - Insomnia, unspecified Category: Medical Qualifiers: Insomnia type: unspecified Qualified Code(s): G47.00 - Insomnia, unspecified Plan: Reinforced sleep hygiene Continue Ambien 10 mg at bedtime Follow up with Psychiatry as scheduled (6) Abnormal colonoscopy: Code(s): R93.3 - Abnormal findings on diagnostic imaging of other parts of digestive tract Category: Medical Plan: Patient was found to have 50 cm polyps. 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 Colonoscopy done in 2023 and was repeated in June of 2025 for close monitoring. This was completed and One benign inflammatory polyp removed, plans to repeat in 1 to 2 years. Medications: New semaglutide (Ozempic) for 4 weeks 0.25 mg (0.368 mL) subcut QWEEK 3 mL 0RF E11.69 - Type 2 diabetes mellitus with other specified complication, E66.01 - Morbid (severe) obesity due to excess calories, R73.9 - Hyperglycemia, unspecified
[2025-07-13 11:01] VITALS: BP 120/76; PULSE 69; RESP 18; TEMP 36.2; O2SAT 97; BMI 32.3
--- OUTSIDE RECORDS SUMMARY | 2025-07-13 12:22 | XMS_ITS | Patient Health Record ---
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 Phone oJana CARTER, Bob Primary Care Provider Thomas Wylie [phone] Allergies No Known Allergies Results Component Value Reference Range Notes Glucose, Whole Blood Reviewed date:06/29/2025 06:21:05 PM Interpretation: Performing Lab:[facility], [address] [place] [id number] Notes/Report: Glucose, Whole Blood 147 60-115 mg/dL METER # : [id number] Pathology (Not yet reviewed by provider) Interpretation: Performing Lab:[facility], [address] [place] [id number] Notes/Report: Reason For Referral No Information Medications Medication SIG (Take, Route, Frequency, Duration) Notes Start Date End Date Status hydrOXYzine Pamoate 25 MG TAKE 1 CAPSULE BY MOUTH EVERY DAY AT BEDTIME NEEDED Oral for 90 Active Lisinopril 10 MG Oral for 90 A ctive metFORMIN HCl 500 MG Oral for 90 Active Zolpidem Tartrate 10 MG Oral for 30 Active clonazePAM 1 MG Oral for 30 Ac tive Dulcolax (colon prep) 5 MG take at 3:00 p.m and 7:00p.m. Orally two tablets twice a day for one day for 1 day 03/09/2024 Active MiraLax (colon prep) 17 GM/SCOOP 1 238Gm bottle mixed with Gatorade or Crystal Light Orally begin at 5:00 p.m. the day before the procedure for 1 day 03/09/2024 Active Immunizations Vaccine Route Administration Date Status Comme nts Influenza Unknown 03/04/2024 Refused Social History Tobacco Use: Social History Observation Description Date Details (start date - stop date) Never Smoker NA - NA Tobacco Use/Smoking Question Answer Notes Patient is [...] Never (0 point) Points 1 Interpretation Negative Section Notes: Nonsmoker; no sig alcohol Nonsmoker; no sig alcohol Problems Problem Type SNOMED Code ICD Code Onset Dates Problem Status W/U Status Risk Notes Problem Colon cancer screening (408509484) Colon cancer screening (Z12.11) Active confirmed Problem Abnormal feces (579885439) Heme + stool (R19.5) Active confirmed Problem Adenocarcinoma in adenomatous polyp (11493956) Adenocarcinoma in adenomatous polyp (C80.1) Active confirmed Vital Signs Blood pressure diastolic 77 mm Hg 03/02/2025 Height 67 in 03/02/2025 Blood pressure systolic 111 mm Hg 03/02/2025 Weight 197 lbs 03/02/2025 BMI 30.85 kg/m2 03/02/2025 Procedures Procedure Date Ordered Date Performed Result Body Sit e COLONOSCOPY 03/02/2025 N/A Encounters Encounter Location Date Provider Diagnosis [facility] Outpatient [address] [place] [address] [id number] 06/28/2025 Thomas Peraza [facility] [address] [place] [phone] 03/02/2025 Thomas Peraza Colon cancer screeni ng Z12.11 and Adenocarcinoma in adenomatous polyp C80.1 [facility] [address] [place] [phone] 03/02/2025 Thomas Peraza Assessments Encounter Date Diagnosis (ICD Code) Assessment Notes Treatment Notes Treatment Clinical Notes Section Notes 03/02/2025 Colon cancer screening (ICD-10 - Z12.11) Overall, Adarsh appears quite well and is not having any new or worrisome GI complaints. Based on the significant findings from the colonoscopy in June 2024, particularly in regard to the tubular adenoma with adenocarcinoma, I have recommended a follow-up colonoscopy for later this year for close surveillance and screening. We did review the rationale for this in regard to colorectal cancer prevention and/or early detection. Full consent has been taken from him for this, including risks of bleeding and perforation. The procedure will be done with monitored anesthesia care. He was given the below instruction regarding adjustment of his metformin for the procedure. Adarsh was comfortable with this plan. Thank you again for allowing me to participate in Adarsh's care. I shall continue to keep you advised of his progress. 03/02/2025 Adenocarcinoma in adenomatous polyp (ICD-10 - C80.1) Overall, Adarsh appears quite well and is not having any new or worrisome GI complaints. Based on the significant findings from the colonoscopy in June 2024, particularly in regard to the tubular adenoma with adenocarcinoma, I have recommended a follow-up colonoscopy for later this year for close surveillance and screening. We did review the rationale for this in regard to colorectal cancer prevention and/or early detection. Full consent has been taken from him for this, including risks of bleeding and perforation. The procedure will be done with monitored anesthesia care. He was given the below instruction regarding adjustment of his metformin for the procedure. Adarsh was comfortable with this plan. Thank you again for allowing me to participate in Adarsh's care. I shall continue to keep you advised of his progress. Plan Of Treatment Pending Test Test Name Order Date COLONOSCOPY 03/02/2025 Pathology 06/28/2025 Future Test Test Name Order Date COLONOSCOPY 03/04/2024 Insurance Providers Payer Name Payer Address Payer Phone Subscriber Number Group Number Insured Name Patient Relationship to Insured Coverage Start Date Coverage End Date [facility] [address] Attn Claims JOANN John [id number] ADARSH ABDUL Self - patient is the insured Medical (General) History Medical History History ICD Code NIDDM HTN Anxiety Denies [place],CVA,Lung disease,renal disease Colonoscopy 06/2024 for Heme + stool with removal of 2 polyps at 50 cm and 12 cm. Both sites marked with ink. Polyp at 50cm was a tubulovillous adenoma with high grade dysplasia and was completely excised. Polyp at 12cm was a tubular adenoma with adenocarcinoma but with adequate margin of 5mm and felt to be completely excised Surgical History Surgery Date(Month/Year) Anal lesion-benign
--- OUTSIDE RECORDS SUMMARY | 2025-07-13 12:22 | XMS_ITS | Clinical Summary ---
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
== END 2025-07-13 12:02 | disposition home or self-care (01) ==
LOC: HO.HMCH 10:58
DX: E11.69 Type 2 diabetes mellitus with other specified complication (principal); E66.01 Morbid (severe) obesity due to excess calories; Z68.30 Body mass index [BMI] 30.0-30.9, adult; F31.9 Bipolar disorder, unspecified; E66.811 Obesity, class 1; I10 Essential (primary) hypertension; G47.00 Insomnia, unspecified; R93.3 Abnormal findings on diagnostic imaging of other parts of digestive tract

== ENCOUNTER → 2025-07-13 10:57 | Outpatient (BNVA) | payer OTHER, SELFPAY | DX: I10 Essential (primary) hypertension (principal); E78.5 Hyperlipidemia, unspecified; E66.811 Obesity, class 1; E11.69 Type 2 diabetes mellitus with other specified complication; E66.01 Morbid (severe) obesity due to excess calories; F31.9 Bipolar disorder, unspecified; G47.00 Insomnia, unspecified; R93.3 Abnormal findings on diagnostic imaging of other parts of digestive tract; E11.65 Type 2 diabetes mellitus with hyperglycemia; Z79.84 Long term (current) use of oral hypoglycemic drugs; Z68.32 Body mass index [BMI] 32.0-32.9, adult | CPT/HCPCS: 99212 ==